=== PATIENT | male | born 1960 | race Caucasian/White ===

== ENCOUNTER 2018-07-18 10:13 | Inpatient (IN) | payer MEDICAID ==
[~2018-07-18] VITALS: Ht 175.3 cm; Wt 134.7 kg
--- NOTE | 2018-07-18 10:17 | NUR ---
Hever pepe in [facility] - 07/18/18 at 1017 by MEDFL PT AMB TO BED 2
--- NOTE | 2018-07-18 10:17 | NUR ---
PT AMBULATES TO BED 2
[2018-07-18 10:24] VITALS: BP 136/65
--- NOTE | 2018-07-18 10:28 | NUR ---
57 YO M BIB C/O ABDOMINAL DISTENSION. PT STATES " HE HAS AB DISTENSION WITH FLUID LEAKING/SEEPING FROM ABDOMEN, STARTED YESTERDAY EVERYTIME HE SITS UP." PT HAS NO SWELLING OR REDNESS AT THE AREA OF LEAKAGE. PT DENIES N/V/D; AAOX4 WITH EVEN AND STEADY GAIT; LUNGS CLEAR BL; HR EVEN AND REGULAR; PT DENIES ANY FEVER, CP, SOB, OR COUGH AT THIS TIME; PATIENT STATES PAIN OF 0/10 AT THIS TIME; VSS; PATIENT POSITIONED FOR COMFORT; HOB ELEVATED; BEDRAILS UP X1; BED DOWN. ER MD MADE AWARE OF PT STATUS. HX; RECENT DX CIRRHOSIS RX;NONE
[2018-07-18] MEDS ORDERED: FUROSEMIDE 100 MG/10 ML VIAL IVP ONE (10:40)
--- NOTE | 2018-07-18 11:01 | NUR ---
LAB AT BEDSIDE
[2018-07-18 11:23] LABS: BASOPHILS # (AUTO) 0.1 K/uL (0.00-0.22); BASOPHILS % (AUTO) 1.4 % (0.0-2.0); EOSINOPHILS # (AUTO) 0.1 K/uL (0-0.4); NEUTROPHILS # (AUTO) 4.5 K/uL (1.8-7.7)
[2018-07-18 11:29] LABS: EOSINOPHILS % (AUTO) 1.7 % (0.0-4.0); HEMATOCRIT 34.1 % (36-52); HEMOGLOBIN 10.8 g/dL (12.0-18.0); LYMPHOCYTES # (AUTO) 0.9 K/uL (2.0-11.5); LYMPHOCYTES % (AUTO) 15.1 % (20.5-51.1); MEAN CORPUSCULAR HEMOGLOBIN 29 pg (27-31); MEAN CORPUSCULAR HGB CONC 32 g/dL (33-37); MEAN CORPUSCULAR VOLUME 92.8 fL (80-94); MONOCYTES # (AUTO) 0.4 K/uL (0.8-1.0); MONOCYTES % (AUTO) 7.1 % (1.7-9.3); NEUTROPHILS % (AUTO) 74.7 % (42.2-75.2); PLATELET COUNT (AUTO) 72 K/uL (140-450); RED BLOOD CELL COUNT(AUTO) 3.68 MIL/uL (4.20-6.10); RED CELL DISTRIBUTION WIDTH 23.4 % (11.6-13.7)
[2018-07-18 11:38] LABS: PROTHROMBIN TIME 16.3 secs (10.8-13.4)
[2018-07-18 11:42] LABS: ACETONE, SERUM NEGATIVE (NEGATIVE)
[2018-07-18 12:08] LABS: AMYLASE 72 U/L (25-115); ANION GAP 13.6 (8-16); ASPARTATE AMINOTRANSFERASE 133 U/L (15-37); CARBON DIOXIDE 22.1 mmol/L (21-32); CHLORIDE 103 mmol/L (98-107); CREATININE 0.9 mg/dL (0.7-1.3); GFR ARICAN-AMERICAN 112 mL/min (>90); GLUCOSE 94 mg/dL (74-106); LIPASE 239 U/L (73-393); MAGNESIUM 2.2 mg/dL (1.8-2.4); POTASSIUM 4.7 mmol/L (3.5-5.1); SODIUM SERUM 134 mmol/L (136-145); TOTAL BILIRUBIN 16.2 mg/dL (0.0-1.0); UREA NITROGEN, BLOOD 18 mg/dL (7-18); URIC ACID 4.3 mg/dL (2.6-7.2)
--- NOTE | 2018-07-18 13:00 | NUR ---
Patient will be admitted to care of DR. PONCE. Admited to TELE FLORR. Will go to room 105-A. Belongings list completed. Report to RUI IBRAHIM.
[2018-07-18] MEDS ORDERED: ONDANSETRON 4 MG/2 ML VIAL IM/IVP PRN (13:15)
[2018-07-18] MEDS ORDERED: ZOLPIDEM 5 MG TAB PO PRN (13:15)
[2018-07-18] MEDS ORDERED: MORPHINE SULFATE 2 MG/ML SYR IVP PRN (13:15)
[2018-07-18] MEDS ORDERED: HYDROcodone/APAP 5/325 MG 1 TAB TAB PO PRN (13:15)
[2018-07-18] MEDS ORDERED: DOCUSATE SODIUM 100 MG GELCAP PO PRN (13:15)
[2018-07-18] MEDS ORDERED: ACETAMINOPHEN 325 MG TAB PO PRN (13:15)
[2018-07-18] MEDS ORDERED: LORazepam 2 MG/ML VIAL IM/IVP PRN (13:15)
[2018-07-18 13:20] VITALS: BP 142/74
--- NOTE | 2018-07-18 13:30 | NUR ---
RECEIVED PT REPORT FROM ER NURSE RICARDO. PT IS AAOX4. CC: ABD DISTENTION, ONSET IS 2 WKS AGO. DX ASCITES, ANASARCA, LIVER CIRRHOSIS. IV SITE TO LEFT AC, 22G, PATENT AND INTACT. GENERAL PITTING EDEMA 2+. JAUNDICE NOTED TO THE EYES. DENIES ANY PAIN. URINE SPECIMEN AND MRSA SWAB COLLECTED AND SENT TO LAB. PT IS AMBULATORY. BOARD UPDATED AND INTRODUCED SELF TO PT. BED IN LOWEST POSITION. CALL LIGHT WITHIN REACH.
[2018-07-18 13:31] LABS: BARBITURATE, URINE NEG. ng/ml (NEG <=200); BENZODIAZEPINE, URINE NEG. ng/mL (NEG <=200); CANNABINOID, URINE NEG. ng/mL (NEG <=50); COCAINE, URINE NEG. ng/mL (NEG <=300); OPIATE, URINE NEG. ng/mL (NEG <=2000); PHENCYCLIDINE SCREEN,URINE NEG. ng/mL (NEG <=25)
[2018-07-18] MEDS: NACL 0.9% 1,000 ML IV SCH (13:40)
--- NOTE | 2018-07-18 13:40 | NUR ---
ORDERED LUNCH FOR PT.
[2018-07-18 14:33] LABS: PHOSPHORUS 4.1 mg/dL (2.5-4.9); THYROID STIMULATING HORMONE 6.02 uIU/mL (0.34-3.74)
[2018-07-18 14:49] LABS: APPEARANCE,URINE CLEAR (CLEAR); BILIRUBIN,URINE 1+ (NEGATIVE); BLOOD, URINE NEGATIVE (NEGATIVE); COLOR,URINE YELLOW (YELLOW); LEUKOCYTE ESTERASE ,URINE NEGATIVE (NEGATIVE); NITRITE, URINE NEGATIVE (NEGATIVE); PH,URINE 5.5 (5.0-9.0); UGLUCOSE NEGATIVE (NEGATIVE)
--- NOTE | 2018-07-18 15:51 | NUR ---
RECEIVED PT REPORT FROM ER NURSE RICARDO. PT IS AAOX4. CC: ABD DISTENTION, ONSET IS 2 WKS AGO. DX ASCITES, ANASARCA, LIVER CIRRHOSIS. IV SITE TO LEFT AC, 22G, PATENT AND INTACT. GENERAL PITTING EDEMA 2+. JAUNDICE NOTED TO THE EYES. DENIES ANY PAIN. URINE SPECIMEN AND MRSA SWAB COLLECTED AND SENT TO LAB. PT IS AMBULATORY. BOARD UPDATED AND INTRODUCED SELF TO PT. BED IN LOWEST POSITION. CALL LIGHT WITHIN REACH. Addendum: 07/18/18 at 1558 by Mendoza Peraza RN PLEASE DISCARD, WRONG TIME ENTERED.
[2018-07-18 16:00] VITALS: BP 143/83
--- NOTE | 2018-07-18 17:00 | NUR ---
DR SAHNI HAS TALKED TO THE PT. CONSENT FOR PARACENTESIS SIGNED. PT HAS NO QUESTIONS AT THIS TIME.
[2018-07-18] MEDS ORDERED: LISINOPRIL 10 MG TAB ONE (17:45)
[2018-07-18] MEDS ORDERED: LISINOPRIL 5 MG TAB PO SCH (18:00)
--- NOTE | 2018-07-18 19:20 | NUR ---
ENDORSED PT TO IMAGING AIDE RN. PT IN STABLE CONDITION.
--- NOTE | 2018-07-18 19:25 | NUR ---
RECEIVED REPORT AT BEDSIDE.PT IS AWAKE,ALERT & ORIENTED.RESP.IS UNLABORED IN RA.IVF INFUSING WELL.CALL LIGHT IN REACH.WILL CONTINUE MONITORING.
[2018-07-18] MEDS: SPIRONOLACTONE 25 MG TAB PO SCH (20:49)
[2018-07-19] VITALS: BP 140/81
--- NOTE | 2018-07-19 | NUR ---
SLEEPING W/O SIGN OF ANY DISTRESS.CALL LIGHT IN REACH.VS STABLE.
[2018-07-19] MEDS: NACL 0.9% 1,000 ML IV SCH (01:45)
--- NOTE | 2018-07-19 07:10 | NUR ---
RECEIVED PT REPORT FROM INTERNET SALES REPRESENTATIVE NURSE. PT IS AAOX4. IV SITE TO LEFT AC, 22G, PATENT AND INTACT. BLE PITTING EDEMA 2+. ABD IS LARGE AND ASCITIC. JAUNDICE NOTED TO THE EYES. DENIES ANY PAIN. PLAN OF CARE DISCUSSED WITH PT. PT VERBALIZED UNDERSTANDING. PT IS AMBULATORY. BOARD UPDATED AND INTRODUCED SELF TO PT. BED IN LOWEST POSITION. CALL LIGHT WITHIN REACH.
--- NOTE | 2018-07-19 07:11 | NUR ---
REPORT GIVEN TO PHILLIP RN.PT'S CONDITION IS STABLE.
[2018-07-19 07:51] LABS: BASOPHILS # (AUTO) 0.1 K/uL (0.00-0.22); BASOPHILS % (AUTO) 1.1 % (0.0-2.0); EOSINOPHILS # (AUTO) 0.1 K/uL (0-0.4); EOSINOPHILS % (AUTO) 2.8 % (0.0-4.0); HEMATOCRIT 27.6 % (36-52); HEMOGLOBIN 8.9 g/dL (12.0-18.0); LYMPHOCYTES # (AUTO) 0.8 K/uL (2.0-11.5); LYMPHOCYTES % (AUTO) 16.1 % (20.5-51.1); MEAN CORPUSCULAR HEMOGLOBIN 30 pg (27-31); MEAN CORPUSCULAR HGB CONC 32 g/dL (33-37); MEAN CORPUSCULAR VOLUME 93.3 fL (80-94); MONOCYTES # (AUTO) 0.5 K/uL (0.8-1.0); MONOCYTES % (AUTO) 9.7 % (1.7-9.3); NEUTROPHILS # (AUTO) 3.4 K/uL (1.8-7.7); NEUTROPHILS % (AUTO) 70.3 % (42.2-75.2); PLATELET COUNT (AUTO) 58 K/uL (140-450); RED BLOOD CELL COUNT(AUTO) 2.96 MIL/uL (4.20-6.10); RED CELL DISTRIBUTION WIDTH 23.3 % (11.6-13.7); WHITE BLOOD COUNT (AUTO) 4.8 K/uL (4.8-10.8)
[2018-07-19 07:57] LABS: ANION GAP 11.4 (8-16); CARBON DIOXIDE 21.7 mmol/L (21-32); CREATININE 0.8 mg/dL (0.7-1.3); POTASSIUM 4.1 mmol/L (3.5-5.1)
[2018-07-19 08:00] VITALS: BP 138/70
[2018-07-19 08:21] LABS: PHOSPHORUS 4.2 mg/dL (2.5-4.9)
[2018-07-19 08:22] LABS: CHOL/HDL RATIO 5.5 (1-4.5)
[2018-07-19] MEDS: SPIRONOLACTONE 25 MG TAB PO SCH ×2 (08:55→20:55)
[2018-07-19] MEDS ORDERED: LISINOPRIL 5 MG TAB PO SCH (09:00)
[2018-07-19] MEDS ORDERED: FUROSEMIDE 40 MG TAB PO SCH (09:00)
[2018-07-19] MEDS ORDERED: chlordiazePOXIDE 25 MG CAP PO SCH (09:00)
--- NOTE | 2018-07-19 09:05 | NUR ---
DR JONES HAS SEEN THE PT. WILL PERFORM EGD TOMORROW. DR SAHNI WILL PERFORM PARACENTESIS TODAY.
[2018-07-19] MEDS: PANTOPRAZOLE 40 MG INJ VIAL IVP SCH (09:17)
[2018-07-19] MEDS: LACTULOSE 20 GM/30 ML UDC PO SCH ×2 (09:17→20:54)
[2018-07-19] MEDS: FUROSEMIDE 20 MG/2 ML VIAL IVP SCH ×2 (09:18→20:56)
--- NOTE | 2018-07-19 09:20 | NUR ---
WEIGHT THE PT, 302.6 LB. URINE HAT AND URINAL PROVIDED FOR PT. PT UNDERSTAND THAT WE ARE MEASURING OUTPUT.
[2018-07-19] MEDS ORDERED: PHYTONADIONE 10 MG/ML AMP SUBQ SCH (09:30)
--- NOTE | 2018-07-19 12:00 | NUR ---
BP 130/69 HR 80
[2018-07-19] MEDS: PROPRANOLOL 20 MG TAB PO SCH ×3 (12:15→20:54)
[2018-07-19 12:26] LABS: T4 (THYROXINE) 5.5 ug/dL (4.5-12.0)
[2018-07-19 16:04] VITALS: BP 126/71
--- NOTE | 2018-07-19 16:40 | NUR ---
PARACENTESIS PROCEDURE WAS DONE AT BEDSIDE. PT TOLERATED WELL.
[2018-07-19] MEDS ORDERED: LIDOCAINE 2% 100 MG/5 ML UJET TP ONE (16:50)
[2018-07-19] MEDS ORDERED: LIDOCAINE MPF 1% - 5 mL VIAL 5 ML ONE (16:57)
[2018-07-19] MEDS ORDERED: LIDOCAINE MPF 1% 5mL VIAL INJ ONE (17:00)
[2018-07-19] MEDS ORDERED: MENTHOL/METHYL 10%-15% 114 GM TUBE TP PRN ×2 (18:50→20:30)
--- NOTE | 2018-07-19 19:30 | NUR ---
TOTAL OF 5 L HAS BEEN DRAINED FROM PARACENTESIS, SENT THE BOTTLES TO LAB.
--- NOTE | 2018-07-19 19:30 | NUR ---
ENDORSE PT TO CONSUMER SAFETY OFFICER NURSE. PT IN STABLE CONDITION.
--- NOTE | 2018-07-19 19:31 | NUR ---
RECEIVED REPORT FROM ALEXANDRIA THOMAS NURSE AT BEDSIDE FOR CONTINUITY OF CARE. PT AAOX4. PT IS CURRENTLY WITH MD AND MD REMOVING TUBE FROM PARACENTESIS. PT IV NOTED LAC 22G NS TKO. NO SOB NO S/S OF DISTRESS ON RA. PT AMBULATORY. BED LOWERED CALL LIGHT WITHIN REACH WILL CONTINUE TO MONITOR.
[2018-07-19 20:17] LABS: PROTHROMBIN TIME 17.2 secs (10.8-13.4)
--- NOTE | 2018-07-19 21:00 | NUR ---
PT REQUESTED SANDRA FOR PAIN IN HANDS TALK TO MD. MD WILL PUT IN THE ORDER.
[2018-07-20] MEDS: NACL 0.9% 1,000 ML IV SCH (00:21)
--- NOTE | 2018-07-20 01:00 | NUR ---
PT WOKE UP AND STATED THEY WERE LEAKING. UPON ENTERING THE ROOM PT IS SITTING AT BEDSIDE. I DO NOTICE 2 HOLES 0.05MM RIGHT AND LEFT LOWER QUANDRANT. PT ALSO LEAVING LOWER ABDOMEN FROM PORES. CHANGED SHEETS AND GUAZE DRESSING WILL CONTINUE TO MONITOR.
[2018-07-20 01:28] VITALS: BP 120/51
[2018-07-20 02:57] LABS: APPEARANCE,SPUN,BODY FLUID HAZY (CLEAR); APPEARANCE,UNSPUN,BODY FLUID HAZY (CLEAR); COLOR,BODY FLUID YELLOW (LT YELLOW); POLYNUCLEAR, BODY FLUID 0 %; RBC, BODY FLUID 1222 /cu. mm.; SPECIMENTYPE,BODY FLUID PERITONEAL; WBC, BODY FLUID 66 /cu. mm.
[2018-07-20 03:07] LABS: TOTAL VOLUME,BODY FLUID 5000 mL
--- NOTE | 2018-07-20 03:13 | NUR ---
PUT SANDRA AT BEDSIDE.
[2018-07-20] MEDS: PROPRANOLOL 20 MG TAB PO SCH ×4 (06:35→21:00)
--- NOTE | 2018-07-20 07:37 | NUR ---
ENDORSED REPORT TO DAYSHIFT NURSE AT BEDSIDE FOR CONTINUITY OF CARE.
--- NOTE | 2018-07-20 07:38 | NUR ---
RECEIVED REPORT FROM CLIENT LEADER RN. PATIENT IS AAOX4, HAS NO SIGNS AND SYMPTOMS OF ACUTE DISTRESS NOTED AT THIS TIME. HAS IV TO THE LEFT AC 20G, INFUSING NS AT 10 ML/HR. SITE IS CLEAN, DRY, PATENT AND INTACT. DISCUSSED PLAN OF CARE WITH PATIENT AND HE VERBALIZED UNDERSTANDING. BED IN LOWEST POSITION, SIDE RAILS UP X2, CALL LIGHT WITHIN REACH. WILL CONTINUE TO MONITOR.
[2018-07-20 07:47] LABS: EOSINOPHILS # (AUTO) 0.1 K/uL (0-0.4); EOSINOPHILS % (AUTO) 2.8 % (0.0-4.0); HEMATOCRIT 27.8 % (36-52); LYMPHOCYTES # (AUTO) 0.8 K/uL (2.0-11.5); MEAN CORPUSCULAR HEMOGLOBIN 30 pg (27-31); MEAN CORPUSCULAR HGB CONC 32 g/dL (33-37); MEAN CORPUSCULAR VOLUME 92.7 fL (80-94); MONOCYTES # (AUTO) 0.5 K/uL (0.8-1.0); MONOCYTES % (AUTO) 8.9 % (1.7-9.3); NEUTROPHILS # (AUTO) 3.7 K/uL (1.8-7.7); NEUTROPHILS % (AUTO) 71.3 % (42.2-75.2); PLATELET COUNT (AUTO) 61 K/uL (140-450); RED CELL DISTRIBUTION WIDTH 22.8 % (11.6-13.7); WHITE BLOOD COUNT (AUTO) 5.1 K/uL (4.8-10.8)
[2018-07-20 08:00] VITALS: BP 109/47
[2018-07-20 08:20] LABS: ANION GAP 11.5 (8-16); CARBON DIOXIDE 21.6 mmol/L (21-32); POTASSIUM 4.1 mmol/L (3.5-5.1)
[2018-07-20 08:36] LABS: MAGNESIUM 1.9 mg/dL (1.8-2.4); PHOSPHORUS 4.3 mg/dL (2.5-4.9)
[2018-07-20] MEDS: SPIRONOLACTONE 25 MG TAB PO SCH (09:00)
[2018-07-20] MEDS: FUROSEMIDE 20 MG/2 ML VIAL IVP SCH ×2 (09:00→21:33)
[2018-07-20] MEDS: PANTOPRAZOLE 40 MG INJ VIAL IVP SCH ×2 (09:00→21:30)
[2018-07-20] MEDS: LACTULOSE 20 GM/30 ML UDC PO SCH ×2 (09:00→21:33)
--- NOTE | 2018-07-20 09:12 | NUR ---
PATIENT HAS BEEN SCREENED AND CATEGORIZED HIGH NUTRITION RISK. PATIENT WILL BE SEEN WITHIN 1-2 DAYS OF ADMISSION. 07/20/[address]
[2018-07-20] MEDS ORDERED: MIDAZOLAM 2 MG/2 ML VIAL ONE (14:02)
[2018-07-20] MEDS ORDERED: diphenhydrAMINE 50 MG/ML VIAL ONE (14:02)
[2018-07-20] MEDS ORDERED: fentaNYL 0.05 MG/ML VIAL ONE ×2 (14:02)
--- NOTE | 2018-07-20 14:05 | NUR ---
PATIENT TAKEN TO GET GI PROCEDURE. STABLE AT THIS TIME.
--- NOTE | 2018-07-20 15:25 | NUR ---
PATIENT BACK FROM EGD. STABLE AT THIS TIME.
--- NOTE | 2018-07-20 15:49 | NUR ---
07/20/18 RD INITIAL ASSESSMENT COMPLETED PLEASE REFER TO NUTRITION ASSESSMENT UNDER CARE ACTIVITY FOR ESTIMATED NUTRITIONAL NEEDS. 1. IMPLEMENT CARDIAC DIET TOLERATED. 2. EDUCATE THE PT ON HEART HEALTHY FATS. 3. RECOMMEND THIAMIN VITAMIN SUPPLEMENTATION. 4. RD TO FOLLOW-UP 3-5 DAYS, MODERATE RISK THERESE MATOS RD
[2018-07-20 16:00] VITALS: BP 115/48
[2018-07-20] MEDS: SPIRONOLACTONE 50 MG TAB PO SCH (17:42)
--- NOTE | 2018-07-20 19:15 | NUR ---
ENDORSED PATIENT TO ERGONOMIC SPECIALIST RN FOR CONTINUITY OF CARE. PATIENT IN STABLE CONDITION.
--- NOTE | 2018-07-20 19:22 | NUR ---
RECEIVED PT FROM JUMA FABIAN PT NGUYỄN AAOX4 AMBULATOY WITH EDEMA ON BLE ASCITES IV ON LEFT AC INFUSING WELL TKO INITIAL ASSESSMENT DONE
[2018-07-20 20:00] VITALS: BP 90/45
--- NOTE | 2018-07-20 22:00 | NUR ---
PT AMBULATES TO THE RESTROOM VOIDING WELL NOT DITRESS NOTED
[2018-07-21] VITALS: BP 105/42
[2018-07-21] MEDS: NACL 0.9% 1,000 ML IV SCH (00:21)
--- NOTE | 2018-07-21 04:25 | NUR ---
PT REPOSITIONED HIMSELF NOT DITRESS NOTED
--- NOTE | 2018-07-21 05:40 | NUR ---
PT VOIDING WELL NO T DISTRESS NOTED
--- NOTE | 2018-07-21 06:16 | NUR ---
PT RESTING ON BED SLEEPING DENIES ANY PAIN OR DISCOMFORT
[2018-07-21 07:09] LABS: BASOPHILS % (AUTO) 0.9 % (0.0-2.0); EOSINOPHILS # (AUTO) 0.1 K/uL (0-0.4); EOSINOPHILS % (AUTO) 2.7 % (0.0-4.0); HEMATOCRIT 30.5 % (36-52); HEMOGLOBIN 9.7 g/dL (12.0-18.0); LYMPHOCYTES # (AUTO) 0.9 K/uL (2.0-11.5); LYMPHOCYTES % (AUTO) 16.3 % (20.5-51.1); MEAN CORPUSCULAR HEMOGLOBIN 30 pg (27-31); MEAN CORPUSCULAR HGB CONC 32 g/dL (33-37); MEAN CORPUSCULAR VOLUME 93.1 fL (80-94); MONOCYTES # (AUTO) 0.4 K/uL (0.8-1.0); MONOCYTES % (AUTO) 8.2 % (1.7-9.3); NEUTROPHILS # (AUTO) 3.9 K/uL (1.8-7.7); NEUTROPHILS % (AUTO) 71.9 % (42.2-75.2); PLATELET COUNT (AUTO) 65 K/uL (140-450); RED BLOOD CELL COUNT(AUTO) 3.27 MIL/uL (4.20-6.10); RED CELL DISTRIBUTION WIDTH 22.9 % (11.6-13.7); WHITE BLOOD COUNT (AUTO) 5.4 K/uL (4.8-10.8)
[2018-07-21 07:24] LABS: ANION GAP 9.2 (8-16); CARBON DIOXIDE 22.8 mmol/L (21-32); CREATININE 0.9 mg/dL (0.7-1.3)
--- NOTE | 2018-07-21 07:31 | NUR ---
RECEIVED REPORT FROM BEAD WIRE INSULATOR RN. PATIENT IS AAOX4, HAS NO SIGNS AND SYMPTOMS OF ACUTE DISTRESS NOTED AT THIS TIME. HAS IV TO THE LEFT AC 20G, INFUSING NS AT 10 ML/HR. SITE IS CLEAN, DRY, PATENT AND INTACT. DISCUSSED PLAN OF CARE WITH PATIENT AND HE VERBALIZED UNDERSTANDING. BED IN LOWEST POSITION, SIDE RAILS UP X2, CALL LIGHT WITHIN REACH. WILL CONTINUE TO MONITOR.
[2018-07-21 07:32] LABS: PROTHROMBIN TIME 15.4 secs (10.8-13.4)
[2018-07-21 08:00] VITALS: BP 124/60
[2018-07-21 08:47] LABS: MAGNESIUM 1.9 mg/dL (1.8-2.4); PHOSPHORUS 4.7 mg/dL (2.5-4.9)
[2018-07-21] MEDS: PROPRANOLOL 20 MG TAB PO SCH (09:00)
[2018-07-21] MEDS: LACTULOSE 20 GM/30 ML UDC PO SCH (09:40)
[2018-07-21] MEDS: SPIRONOLACTONE 50 MG TAB PO SCH (09:41)
[2018-07-21] MEDS: FUROSEMIDE 20 MG/2 ML VIAL IVP SCH (09:43)
[2018-07-21] MEDS: PANTOPRAZOLE 40 MG INJ VIAL IVP SCH (09:43)
[2018-07-21] MEDS ORDERED: PANT40EC PO ×2 (10:43→11:09)
[2018-07-21] MEDS ORDERED: FURO-570 PO (10:43)
[2018-07-21] MEDS ORDERED: PROP20TA29 PO (10:43)
[2018-07-21] MEDS ORDERED: SPIR100T5 PO (10:43)
[2018-07-21] MEDS ORDERED: CLAR500T PO (11:09)
[2018-07-21] MEDS ORDERED: AMOX500C25 PO (11:09)
--- NOTE | 2018-07-21 12:30 | NUR ---
DISCHARGE ORDER IS IN PLACE. GAVE PATIENT DISCHARGE INSTRUCTIONS. INFORMED HIM OF HIS PRESCRIPTIONS. EDUCATED ON S/SX OF WORSENING SYMPTOMS TO SEEK EMERGENCY MEDICAL ATTENTION. PATIENT VERBALIZED UNDERSTANDING. REMOVED IV FROM SITE. CATHETER INTACT. REMOVED ID BANDS. ALL BELONGINGS ARE WITH THE PATIENT. IN STABLE CONDITION AT THIS TIME. WILL WALK OUT WITH PATIENT.
[2018-07-22 02:52] LABS: GLUCOSE,BODY FLUID 118 mg/dL
== END 2018-07-21 12:30 | disposition home or self-care (01) | DRG 280 ==
LOC: MED 10:13 → MTU 12:10
PROVIDERS: ADMIT Family Medicine; ATTEND Family Medicine
PROC: 0W9G3ZZ Drainage of Peritoneal Cavity, Percutaneous Approach (ICD-10-PCS; principal; 2018-07-18)
PROC: 06L38CZ Occlusion of Esophageal Vein with Extraluminal Device, Via Natural or Artificial Opening Endoscopic (ICD-10-PCS; 2018-07-18)
PROC: 0DB68ZX Excision of Stomach, Via Natural or Artificial Opening Endoscopic, Diagnostic (ICD-10-PCS; 2018-07-18)
DX: K70.31 Alcoholic cirrhosis of liver with ascites (principal); I50.43 Acute on chronic combined systolic (congestive) and diastolic (congestive) heart failure; E43 Unspecified severe protein-calorie malnutrition; J90 Pleural effusion, not elsewhere classified; D69.6 Thrombocytopenia, unspecified; K76.6 Portal hypertension; E87.1 Hypo-osmolality and hyponatremia; I85.10 Secondary esophageal varices without bleeding; E83.51 Hypocalcemia; R82.2 Biliuria; R16.1 Splenomegaly, not elsewhere classified; D64.9 Anemia, unspecified; F10.10 Alcohol abuse, uncomplicated; E02 Subclinical iodine-deficiency hypothyroidism; K80.20 Calculus of gallbladder without cholecystitis without obstruction; D63.8 Anemia in other chronic diseases classified elsewhere; K29.70 Gastritis, unspecified, without bleeding; I11.0 Hypertensive heart disease with heart failure; F15.99 Other stimulant use, unspecified with unspecified stimulant-induced disorder; Z71.41 Alcohol abuse counseling and surveillance of alcoholic
CPT/HCPCS: 36415; 71045; 76700; 76705; 80048; 80053; 80305; 81003; 82009; 82140; 82150; 82247; 82945; 83036; 83605; 83615; 83690; 83735; 83880; 84100; 84134; 84157; 84436; 84443; 84484; 84550; 85025; 85610; 86677; 87070; 87075; 87081; 87205; 89051; 93005; 96374; 99285; C9113; G0482; J1200; J1940; J2001; J2250; J3010; J3430; J7030; Q0092

== ENCOUNTER 2018-09-12 08:01 | Emergency (ER) | payer MEDICAID ==
[~2018-09-12] VITALS: Ht 175.3 cm; Wt 135.7 kg
[~2018-09-12 08:01] MED LIST: AMOX500C25 PO; CLAR500T PO; FURO-570 PO; PANT40EC PO; PROP20TA29 PO; SPIR100T5 PO
--- NOTE | 2018-09-12 08:07 | NUR ---
PT AMBULATES TO BED 6
[2018-09-12 08:10] VITALS: BP 161/84
--- NOTE | 2018-09-12 08:11 | NUR ---
Patient being evaluated by physician at bedside.
--- NOTE | 2018-09-12 08:19 | NUR ---
PT WITH C/O WAKING UP THIS MORNING WITH A SWOLLEN PENIS; DENIES PAIN/DISCHARGE OR PAINFUL URINATION. PATIENT STATES PAIN OF 0/10 AT THIS TIME; VSS; PATIENT POSITIONED FOR COMFORT; HOB ELEVATED; BEDRAILS UP X1; BED DOWN. ER MD MADE AWARE OF PT STATUS.
[2018-09-12] MEDS ORDERED: FUROSEMIDE 20 MG TAB PO ONE (08:25)
[2018-09-12] MEDS ORDERED: FUROSEMIDE 40 MG TAB ONE (08:46)
[2018-09-12 09:28] VITALS: BP 161/84
== END 2018-09-12 09:24 | disposition home or self-care (01) ==
LOC: MED 08:01
DX: K70.31 Alcoholic cirrhosis of liver with ascites (principal); Z79.2 Long term (current) use of antibiotics; Z79.899 Other long term (current) drug therapy
CPT/HCPCS: 99283

== ENCOUNTER 2018-10-04 09:15 | Inpatient (IN) | payer MEDICAID, OTHER ==
[~2018-10-04] VITALS: Ht 175.3 cm; Wt 143.3 kg
[~2018-10-04 09:15] MED LIST changes: +SPIR100T46 PO; -SPIR100T5 PO
[2018-10-04 09:25] VITALS: BP 132/65
--- NOTE | 2018-10-04 09:25 | NUR ---
patient to rm 12 via w/c
[2018-10-04] MEDS ORDERED: FERR325E14 PO (09:27)
--- NOTE | 2018-10-04 09:45 | NUR ---
57YO M BIB FAMILY W/C/O SCRODAL EDEMA X2WKS. PT STATES ABD SWELLING STARTED X3WKS AGO. PT WAS SEEN X2 WKS AGO AND X3 DAYS AGO BY PCP. AAOX4 PERSON, PLACE TIME AND EVENT, SCLARAL YELLOWING, PERRLA. LABBORED SHALLOW RR WITH EXCERTION. LS CLEAR THROUGHOUT, SKIN MOIST AND JAUNDICE. BS ACTIVE X4, ABD ASCITIC WITH 76CM GIRTH, NON TENDER. SCROTAL EDEMA, AND BLE PITTING EDEMA. ER MD MADE AWARE . WILL CONTINUE TO MONITOR. PT POSITIONED FOR COMFORT AND MONITORS APPLIED
[2018-10-04] MEDS ORDERED: LIDOCAINE VISCOUS 2% 20 ML UDC PO ONE (10:05)
[2018-10-04] MEDS ORDERED: SPIRONOLACTONE 25 MG TAB PO ONE (10:05)
[2018-10-04] MEDS ORDERED: FUROSEMIDE 100 MG/10 ML VIAL IVP ONE (10:05)
--- NOTE | 2018-10-04 10:05 | NUR ---
DR TOVAR AT BEDSIDE FOR PT EVALUATION
[2018-10-04 10:17] LABS: BASOPHILS % (AUTO) 0.8 % (0.0-2.0); EOSINOPHILS # (AUTO) 0.3 K/uL (0-0.4); EOSINOPHILS % (AUTO) 4.5 % (0.0-4.0); HEMATOCRIT 24.4 % (36-52); HEMOGLOBIN 7.9 g/dL (12.0-18.0); LYMPHOCYTES # (AUTO) 0.9 K/uL (2.0-11.5); LYMPHOCYTES % (AUTO) 13.5 % (20.5-51.1); MEAN CORPUSCULAR HEMOGLOBIN 31 pg (27-31); MEAN CORPUSCULAR HGB CONC 32 g/dL (33-37); MEAN CORPUSCULAR VOLUME 94.8 fL (80-94); MONOCYTES # (AUTO) 0.4 K/uL (0.8-1.0); MONOCYTES % (AUTO) 5.7 % (1.7-9.3); NEUTROPHILS # (AUTO) 4.8 K/uL (1.8-7.7); NEUTROPHILS % (AUTO) 75.5 % (42.2-75.2); PLATELET COUNT (AUTO) 68 K/uL (140-450); RED BLOOD CELL COUNT(AUTO) 2.57 MIL/uL (4.20-6.10); RED CELL DISTRIBUTION WIDTH 19.1 % (11.6-13.7); WHITE BLOOD COUNT (AUTO) 6.4 K/uL (4.8-10.8)
--- NOTE | 2018-10-04 10:25 | NUR ---
ATTEMPTED FRENCH CATH, FAILED ATTEMPT
[2018-10-04 10:39] LABS: ANION GAP 13.4 (8-16); CARBON DIOXIDE 21.4 mmol/L (21-32); CREATININE 1.3 mg/dL (0.7-1.3); POTASSIUM 3.8 mmol/L (3.5-5.1)
[2018-10-04 10:45] LABS: ALBUMIN 1.7 g/dL (3.4-5.0)
--- NOTE | 2018-10-04 10:45 | NUR ---
RADIOLOGY AT BEDSIDE FOR XRAY
--- NOTE | 2018-10-04 11:00 | NUR ---
PATIENT TAKEN TO CT VIA GURNEY AT THIS TIME.
--- NOTE | 2018-10-04 11:25 | NUR ---
PT BACK FROM CT. MONITORS Applied
[2018-10-04 12:16] LABS: BARBITURATE, URINE NEG. ng/ml (NEG <=200); BENZODIAZEPINE, URINE NEG. ng/mL (NEG <=200); CANNABINOID, URINE NEG. ng/mL (NEG <=50); COCAINE, URINE NEG. ng/mL (NEG <=300); OPIATE, URINE NEG. ng/mL (NEG <=2000); PHENCYCLIDINE SCREEN,URINE NEG. ng/mL (NEG <=25)
[2018-10-04 12:32] LABS: APPEARANCE,URINE CLEAR (CLEAR); BILIRUBIN,URINE NEGATIVE (NEGATIVE); BLOOD, URINE 1+ (NEGATIVE); COLOR,URINE YELLOW (YELLOW); LEUKOCYTE ESTERASE ,URINE NEGATIVE (NEGATIVE); NITRITE, URINE NEGATIVE (NEGATIVE); UGLUCOSE NEGATIVE (NEGATIVE)
[2018-10-04 12:33] LABS: RBC,URINE 3-10 (FEW) /HPF (0-5); WBC,URINE NONE SEEN /HPF (0-5)
--- NOTE | 2018-10-04 12:47 | NUR ---
PT RESTING IN BED IN NO APPEARENT DISTRESS WITH FAMILY AT BEDSIDE
[2018-10-04] MEDS ORDERED: LACTULOSE 20 GM/30 ML UDC PO ONE (13:10)
[2018-10-04] MEDS ORDERED: ACETAMINOPHEN 325 MG TAB PO PRN (13:30)
[2018-10-04] MEDS ORDERED: ONDANSETRON 4 MG/2 ML VIAL IVP PRN (13:30)
[2018-10-04] MEDS ORDERED: MORPHINE SULFATE 4 MG/ML SYR IVP PRN (13:30)
--- NOTE | 2018-10-04 14:00 | NUR ---
Patient will be admitted to care of DR GRUBBS . Admited to TELE. Will go to room 120B. Belongings list completed. Report to SUSANA FABIAN .
--- NOTE | 2018-10-04 14:14 | NUR ---
PATIENT HAS BEEN SCREENED AND CATEGORIZED HIGH NUTRITION RISK. PATIENT WILL BE SEEN WITHIN 1-2 DAYS OF ADMISSION. 10/05/18 10/06/18 SANDY IGLESIAS MBA, RD
--- NOTE | 2018-10-04 14:15 | NUR ---
RECEIVED REPORT FROM ER NURSE AT BEDSIDE. PT AOX4, HAS LFT AC 20 G, IV ACCESS, SALINE LOCK. PT HAS DISTENDED ABDOMEN, SWOLLEN SCORTUM. VS NORMAL RECORDED. BP 123/64, HR 72, O12 110%, T 97.5, RR 18. PT BED REST, NEEDS ASSISTANCE WI9TH USE OF URINAL. NO SIGN OF DISTRESS NOTED. HAS SKIN TEAR ON RT LOWER LEG BECAUSE OF [id number] AND ON BACK OF HIP. PT ABLE TO COMMUNICATE WELL. NO SIGN OF DISTRESS NOTED, EXCEPT PT COMPLAINS OF UNCOMFORTABLE IN HIS SCROTAL REGION. WILL CONTINUE TO MONITOR PT.
[2018-10-04 15:00] LABS: PROTHROMBIN TIME 17.2 secs (10.8-13.4)
[2018-10-04 15:07] LABS: ACETONE, SERUM NEGATIVE (NEGATIVE)
[2018-10-04] MEDS ORDERED: ALBUMIN HUMAN 25% 50 ML IV SCH (15:30)
[2018-10-04 16:00] VITALS: BP 125/65
--- NOTE | 2018-10-04 16:00 | NUR ---
CHECKED ON PT. NORMAL VS. APPLIED HYPOGUARD IN PT SCROTAL REGION. TOLERATED WELL. WILL INFUSE ALBUMIN ORDERED. HELPED PT WITH URINAL . PLACED CALL LIGHT WITHIN PT REACH. NO SIGN OF DISTRESS NOTED. WILL CONTINUE TO MONITOR PT.
[2018-10-04] MEDS: PROPRANOLOL 20 MG TAB PO SCH ×2 (17:00→20:15)
--- NOTE | 2018-10-04 17:00 | NUR ---
INFUSED INSULIN TO PT. TOLERATED WELL.WILL CONTINUE TO MONITOR PT.
--- NOTE | 2018-10-04 19:00 | NUR ---
MISSED TO ADMINISTER INDERAL TO PT. WILL ENDORSE TO PM NURSE TO ADMINISTER TO PT.
--- NOTE | 2018-10-04 19:15 | NUR ---
ENDORSED REPORT TO PM NURSE AT BEDSIDE. MO SIGN OF DISTRESS. PT IN STABLE CONDITION.
--- NOTE | 2018-10-04 19:16 | NUR ---
RECEIVED PT AWAKE ON BED, VITAL SIGNS STABLE, DENIES PAIN, NO SOB NOTED, CLEAR LUNG SOUNDS, ABDOMEN DISTENDED DUE TO ASCITES, SCROTAL AND PENILE EDEMA NOTED, PLAN OF CARE DISCUSSED, SAFETY MEASURES IN PLACE, CALL LIGHT WITHIN REACH.
[2018-10-04 20:00] VITALS: BP 130/57
[2018-10-04] MEDS: PANTOPRAZOLE 40 MG TABEC PO SCH (20:15)
[2018-10-04] MEDS: FERROUS SULFATE 325 MG TABEC PO SCH (20:15)
--- NOTE | 2018-10-04 20:20 | NUR ---
DUE MEDS GIVEN WITH EDUCATION PROVIDED, ASSISTED TO USE URINAL, VOIDED FREELY WITH CLEAR STRAW COLORED URINE, ALL NEEDS ATTENDED.
[2018-10-05] VITALS: BP 101/50
--- NOTE | 2018-10-05 | NUR ---
PT SLEEPING, EASILY AROUSABLE, VITAL SIGNS STABLE, DENIES PAIN, NO SOB NOTED, CONTINUE TO MONITOR CLOSELY.
[2018-10-05] MEDS ORDERED: HYDRAGUARD CREAM TP ONE (01:00)
[2018-10-05 04:00] VITALS: BP 130/49
--- NOTE | 2018-10-05 04:00 | NUR ---
PT ASSISTED TO VOID PER URINAL, VITAL SIGNS STABLE, DENIES PAIN, NO SOB NOTED, MONITOR CLOSELY.
--- NOTE | 2018-10-05 07:20 | NUR ---
PT AWAKE, NO DISTRESS NOTED, REPORT GIVEN TO RUI SLADE FOR CONTINUITY OF CARE.
--- NOTE | 2018-10-05 07:22 | NUR ---
RECEIVED BEDSIDE REPORT FROM LOADING UNIT OPERATOR POWDER CHARGING NURSE AT BEDSIDE. PT AOX4. DENIES PAIN AND DISCOMFORT AT THIS TIME. LUNGS CTA. HEART RHYTHM REGULAR. SCOTAL AND PENILE EDEMA NOTED. ASCITES. ABDOMEN LARGE AND DISTENDED. NO TENDERNESS TO LIGHT PALPATION. BILATERAL LE 3+ PITTING EDEMA. PT WAS AMBULATORY BEFORE ADMISSION BUT HAS NOT WALKED SINCE HOSPITALIZATION PER LOADING UNIT OPERATOR POWDER CHARGING RN. NEEDS ASSISTANCE WITH URINAL. IV SITE PATENT, SL. ALL SAFETY PRECAUTIONS IN PLACE, WILL CONTINUE TO MONITOR.
[2018-10-05 07:55] LABS: BASOPHILS % (AUTO) 0.8 % (0.0-2.0); EOSINOPHILS # (AUTO) 0.4 K/uL (0-0.4); EOSINOPHILS % (AUTO) 6.8 % (0.0-4.0); HEMATOCRIT 23.4 % (36-52); HEMOGLOBIN 7.6 g/dL (12.0-18.0); LYMPHOCYTES % (AUTO) 18.7 % (20.5-51.1); MEAN CORPUSCULAR HEMOGLOBIN 30 pg (27-31); MEAN CORPUSCULAR HGB CONC 32 g/dL (33-37); MONOCYTES # (AUTO) 0.5 K/uL (0.8-1.0); MONOCYTES % (AUTO) 8.7 % (1.7-9.3); NEUTROPHILS # (AUTO) 3.5 K/uL (1.8-7.7); PLATELET COUNT (AUTO) 59 K/uL (140-450); RED BLOOD CELL COUNT(AUTO) 2.49 MIL/uL (4.20-6.10); RED CELL DISTRIBUTION WIDTH 19.3 % (11.6-13.7); WHITE BLOOD COUNT (AUTO) 5.4 K/uL (4.8-10.8)
[2018-10-05 08:00] VITALS: BP 119/56
[2018-10-05 08:31] LABS: ALBUMIN 1.8 g/dL (3.4-5.0); CARBON DIOXIDE 22.7 mmol/L (21-32); CREATININE 1.1 mg/dL (0.7-1.3); POTASSIUM 3.7 mmol/L (3.5-5.1); TOTAL BILIRUBIN 3.2 mg/dL (0.0-1.0)
--- NOTE | 2018-10-05 09:02 | NUR ---
HELPED PT TO BATHROOM WITH MINIMAL ASSIST. PT STATED HE HAS BM. OFFERED BEDPAN AND BEDSIDE COMMODE BUT PT REFUSED, PREFERS TO USE BATHROOM. GAIT EVEN AND STEADY WITH MINIMAL ASSIST. WILL CONTINUE TO MONITOR.
[2018-10-05] MEDS: PANTOPRAZOLE 40 MG TABEC PO SCH ×2 (09:13→20:05)
[2018-10-05] MEDS: SPIRONOLACTONE 50 MG TAB PO SCH (09:13)
[2018-10-05] MEDS: FERROUS SULFATE 325 MG TABEC PO SCH ×2 (09:13→20:05)
--- NOTE | 2018-10-05 09:13 | NUR ---
PER PT, HE HAD NORMAL BM, NO DIARRHEA, NO STRAINING.
[2018-10-05] MEDS: PROPRANOLOL 20 MG TAB PO SCH ×3 (09:14→16:11)
[2018-10-05] MEDS: FUROSEMIDE 40 MG TAB PO SCH (09:14)
[2018-10-05 12:00] VITALS: BP 121/50
--- NOTE | 2018-10-05 12:30 | NUR ---
ADMINISTERED PROPANOLOL SCHEDULED. APPLIED HYDRAGUARD TO SCROTAL AREA PER PT REQUEST OF DRYNESS. Addendum: 10/05/18 at 1231 by Ashlee Lozano Meng, RN DUE TO DRYNESS.
--- NOTE | 2018-10-05 14:10 | NUR ---
PT SLEEPING IN BED, WATCHING TV. NO COMPLAINTS OF PAIN OR DISCOMFORT. WILL CONTINUE TO MONITOR.
--- NOTE | 2018-10-05 14:16 | NUR ---
DOCTOR AND LEAD SUSTAINABILITY SPECIALIST AT BEDSIDE TO START US GUIDED PARACENTESIS. CONSENT HAS BEEN SIGNED AND PLACED IN THE CHART.
--- NOTE | 2018-10-05 15:01 | NUR ---
PER US TECH, 4600 ML FLUID REMOVED DURING US GUIDE PARACENTESIS.
--- NOTE | 2018-10-05 15:21 | NUR ---
PT STATES HE DOES NOT FEEL WELL ENOUGH TO GO HOME TODAY. STATES THERE IS PAIN AT ACCESS SITE FOR PARACENTESIS, BUT REFUSING PAIN MEDS AT THIS TIME. PT HAD PERIOD OF TACHYCARDIA HR ~140S ON MONITOR. PUT PT ON 2L O2. PAGED DR. GRUBBS.
--- NOTE | 2018-10-05 15:42 | NUR ---
NOTIFIED DR. GRUBBS THAT PT DOES NOT FEEL WELL ENOUGH TO GO HOME. ALSO NOTIFIED THAT PT HAD PERIOD OF TACHYCARDIA IN ~140S ON TELE MONITOR AND 4600ML TAKEN OUT FROM US GUIDED PARACENTESIS. PER DR. GRUBBS, PT CAN STAY AT HOSPITAL TODAY/TONIGHT.
[2018-10-05 16:00] VITALS: BP 115/53
--- NOTE | 2018-10-05 16:15 | NUR ---
SMALL AMOUNT OF CLEAR DRAINAGE FROM PARACENTESIS ACCESS SITE. COVERED WITH GAUZE AND TAPE. PATIENT DENIES PAIN AND DISCOMFORT. WILL CONTINUE TO MONITOR. Addendum: 10/05/18 at 1652 by Ashlee Lozano Meng, RN VS STABLE
--- NOTE | 2018-10-05 19:20 | NUR ---
ENDORSED PLAN OF CARE TO EVALUATION SPECIALIST RN. PT IN STABLE CONDITION.
--- NOTE | 2018-10-05 19:21 | NUR ---
RECEIVED REPORT FROM DAY SHIFT NURSE YANY-RN AT BEDSIDE. AOX4, FAMILY AT BEDSIDE, ON ROOM AIR- LUNGS CTA, IV SITE ON LEFT AC #20G-SL. HEART RHYTHM REGULAR. SCROTAL AND PENILE EDEMA NOTED. ASCITES. ABDOMEN LARGE AND DISTENDED- S/P PARACENTESIS 4,600ML REMOVED. NO TENDERNESS TO LIGHT PALPATION. BILATERAL LE 3+ PITTING EDEMA. NEEDS ASSISTANCE WITH URINAL. DISCUSSED PLAN OF CARE AND PT VERBALIZED UNDERSTANDING. NO S/S OF RESPIRATORY DISTRESS OR DISCOMFORT NOTED AT THIS TIME. BED IN LOWEST POSITION, BED BREAKS ON, BOTH SIDE RAILS UP AND BED ALARM ON. BED SIDE TABLE AND CALL LIGHT ARE WITHIN REACH. WILL CONTINUE TO MONITOR.
[2018-10-05 20:00] VITALS: BP 110/53
--- NOTE | 2018-10-05 20:00 | NUR ---
VITAL SIGNS TAKEN AND TOLERATED WELL. NO S/S OF RESPIRATORY DISTRESS OR DISCOMFORT NOTED AT THIS TIME. WILL CONTINUE TO MONITOR.
--- NOTE | 2018-10-05 20:05 | NUR ---
SCHEDULED MEDICATION GIVEN AND TOLERATED WELL. NO S/S OF RESPIRATORY DISTRESS OR DISCOMFORT NOTED AT THIS TIME. WILL CONTINUE TO MONITOR.
--- NOTE | 2018-10-05 22:00 | NUR ---
PT SLEEPING IN BED. NO S/S OF RESPIRATORY DISTRESS OR DISCOMFORT NOTED AT THIS TIME. WILL CONTINUE TO MONITOR.
[2018-10-06] VITALS: BP 115/56
--- NOTE | 2018-10-06 | NUR ---
VITAL SIGNS TAKEN AND TOLERATED WELL. NO S/S OF RESPIRATORY DISTRESS OR DISCOMFORT NOTED AT THIS TIME. WILL CONTINUE TO MONITOR.
--- NOTE | 2018-10-06 02:00 | NUR ---
PT CONTINUES TO SLEEP. NO S/S OF RESPIRATORY DISTRESS OR DISCOMFORT NOTED AT THIS TIME. WILL CONTINUE TO MONITOR.
[2018-10-06 04:00] VITALS: BP 120/54
--- NOTE | 2018-10-06 04:00 | NUR ---
VITAL SIGNS TAKEN AND TOLERATED WELL. NO S/S OF RESPIRATORY DISTRESS OR DISCOMFORT NOTED AT THIS TIME. WILL CONTINUE TO MONITOR.
--- NOTE | 2018-10-06 06:00 | NUR ---
PT SLEEPING IN BED. NO S/S OF RESPIRATORY DISTRESS OR DISCOMFORT NOTED AT THIS TIME. WILL CONTINUE TO MONITOR.
--- NOTE | 2018-10-06 07:26 | NUR ---
ENDORSED PT CARE TO DAY SHIFT NURSE CHERI-RN FOR CONTINUITY OF CARE.
[2018-10-06 08:00] VITALS: BP 122/56
[2018-10-06] MEDS: PROPRANOLOL 20 MG TAB PO SCH (09:21)
[2018-10-06] MEDS: SPIRONOLACTONE 50 MG TAB PO SCH (09:21)
[2018-10-06] MEDS: PANTOPRAZOLE 40 MG TABEC PO SCH (09:21)
[2018-10-06] MEDS: FUROSEMIDE 40 MG TAB PO SCH (09:22)
[2018-10-06] MEDS: FERROUS SULFATE 325 MG TABEC PO SCH (09:22)
[2018-10-06 12:30] VITALS: BP 130/60
--- NOTE | 2018-10-06 13:24 | NUR ---
FOR D/C HOME AND D/C INSTRUCTIONS GIVEN AND UNDERSTOOD.no prescriptions.iv dcd and tele also removed.taken by w/c to front entrance and ride waiting for him.
== END 2018-10-06 13:30 | disposition home or self-care (01) ==
LOC: MED 09:15 → MTU 13:26
PROVIDERS: ADMIT Hospitalist; ATTEND Hospitalist
PROC: 0W9G3ZZ Drainage of Peritoneal Cavity, Percutaneous Approach (ICD-10-PCS; principal; 2018-10-04)
DX: K74.60 Unspecified cirrhosis of liver (principal); D69.6 Thrombocytopenia, unspecified; I50.9 Heart failure, unspecified; K72.90 Hepatic failure, unspecified without coma; K76.6 Portal hypertension; E88.09 Other disorders of plasma-protein metabolism, not elsewhere classified; R18.8 Other ascites; D64.9 Anemia, unspecified; F10.10 Alcohol abuse, uncomplicated; D63.8 Anemia in other chronic diseases classified elsewhere
CPT/HCPCS: 36415; 49083; 71045; 76705; 80053; 80305; 81001; 82009; 82140; 82150; 83605; 83690; 83735; 84550; 85025; 85610; 87081; 96374; 99285; G0482; J1940; J2001; P9046; Q0092

== ENCOUNTER 2018-12-18 07:12 | Day surgery (SDC) | payer OTHER ==
[~2018-12-18] VITALS: Ht 175.3 cm; Wt 113.4 kg
[~2018-12-18 07:12] MED LIST changes: -AMOX500C25 PO; -CLAR500T PO; +FERR325E14 PO
[2018-12-18] MEDS ORDERED: LIDOCAINE VISCOUS 2% 20 ML UDC ONE (08:49)
== END 2018-12-18 10:20 | disposition home or self-care (01) ==
LOC: MDS 07:12 → MMU 07:13 → MDS 10:20
PROVIDERS: ATTEND Internal Medicine Gastroenterology
DX: I85.00 Esophageal varices without bleeding (principal); K70.31 Alcoholic cirrhosis of liver with ascites; K31.9 Disease of stomach and duodenum, unspecified; Z98.890 Other specified postprocedural states; Z87.891 Personal history of nicotine dependence; Z79.2 Long term (current) use of antibiotics; Z79.899 Other long term (current) drug therapy; E66.9 Obesity, unspecified; Z68.36 Body mass index [BMI] 36.0-36.9, adult; Z83.3 Family history of diabetes mellitus; I10 Essential (primary) hypertension; F12.11 Cannabis abuse, in remission; F10.21 Alcohol dependence, in remission

== ENCOUNTER 2019-05-07 06:32 | Day surgery (SDC) | payer OTHER ==
[~2019-05-07] VITALS: Ht 175.3 cm; Wt 113.9 kg
[2019-05-07] MEDS ORDERED: MIDAZOLAM 2 MG/2 ML VIAL ONE (08:34)
[2019-05-07] MEDS ORDERED: fentaNYL 0.05 MG/ML VIAL ONE (08:34)
[2019-05-07] MEDS ORDERED: MIDAZOLAM 2 MG/2 ML VIAL IVP ONE (16:15)
== END 2019-05-07 09:40 | disposition home or self-care (01) ==
LOC: MDS 06:32 → MMU 06:33 → MDS 09:40
PROVIDERS: ATTEND Internal Medicine Gastroenterology
DX: K70.30 Alcoholic cirrhosis of liver without ascites (principal); I85.10 Secondary esophageal varices without bleeding; E66.9 Obesity, unspecified; I10 Essential (primary) hypertension; F10.988 Alcohol use, unspecified with other alcohol-induced disorder; Z87.891 Personal history of nicotine dependence; Z79.2 Long term (current) use of antibiotics; Z79.899 Other long term (current) drug therapy; Z98.890 Other specified postprocedural states; Z68.37 Body mass index [BMI] 37.0-37.9, adult
CPT/HCPCS: 43244; J2250; J3010

== ENCOUNTER 2019-07-01 09:42 | Inpatient (IN) | payer OTHER ==
[~2019-07-01] VITALS: Ht 175.3 cm; Wt 107.0 kg
[2019-07-01 09:55] VITALS: BP 108/50
--- NOTE | 2019-07-01 10:14 | NUR ---
XRAY AT BEDSIDE
[2019-07-01] MEDS ORDERED: NACL 0.9% 1,000 ML IV ONE ×2 (10:15→11:20)
--- NOTE | 2019-07-01 10:15 | NUR ---
PT BIB FOR GEN WEAKNESS, AND DIZZINESSS. PT HAS HX LIVER CIRRHOSIS , HTN, ANEMINA. PT STATES HE MAY HAVE BEEN HAVING DARK BLOODY STOOLS LATELY. PT ABD IS LARGE, ROUND, FIRM, NON TENDER, NO ABD PAIN. PT HAS PAIN TO LOWER RIGHT LEG, LUMP NOTED W/ REDNESS AND TENDERNESS. PT HAS BL LEG EDEMA NON PITTING. SKIN IS JAUNDICED. PT IS AWAKE AND ACTING APPROPRIATE. AT BEDSIDE.
[2019-07-01 10:41] LABS: RED BLOOD CELL COUNT(AUTO) 1.58 MIL/uL (4.20-6.10); WHITE BLOOD COUNT (AUTO) 12.1 K/uL (4.8-10.8)
[2019-07-01 10:48] LABS: MEAN CORPUSCULAR HEMOGLOBIN 35 pg (27-31); MEAN CORPUSCULAR HGB CONC 31 g/dL (33-37); MEAN CORPUSCULAR VOLUME 111.4 fL (80-94); PLATELET COUNT (AUTO) 77 K/uL (140-450)
[2019-07-01 10:55] LABS: HEMATOCRIT 17.6 % (36-52); HEMOGLOBIN 5.4 g/dL (12.0-18.0)
[2019-07-01 10:56] LABS: PROTHROMBIN TIME 16.8 secs (10.8-13.4)
[2019-07-01] MEDS ORDERED: MORPHINE SULFATE 4 MG/ML SYR IVP ONE (11:05)
[2019-07-01 11:07] LABS: ALBUMIN 1.3 g/dL (3.4-5.0); CARBON DIOXIDE 12.8 mmol/L (21-32); POTASSIUM 5.8 mmol/L (3.5-5.1); TOTAL BILIRUBIN 2.7 mg/dL (0.0-1.0)
--- NOTE | 2019-07-01 11:15 | NUR ---
PT BP 95/33, DR YEPEZ MADE AWARE, WILL HOLD MORPHINE AT THIS TIME AND MEDICATE WITH TORADOL.
[2019-07-01 11:16] LABS: CREATININE 4.2 mg/dL (0.7-1.3)
[2019-07-01] MEDS ORDERED: KETOROLAC 30 MG/ML VIAL IVP ONE (11:20)
[2019-07-01 11:25] LABS: BASOPHILS % (MANUAL) 0 % (0-2); EOSINOPHILS % (MANUAL) 0 % (0-4); LYMPHOCYTES % (MANUAL) 7 % (20-46); MONOCYTES % (MANUAL) 4 % (5-12)
[2019-07-01] MEDS ORDERED: SODIUM POLYSTYRENE 15 GM/60 ML UDBTL PO ONE (11:40)
[2019-07-01 12:06] LABS: APPEARANCE,URINE CLEAR (CLEAR); BILIRUBIN,URINE NEGATIVE (NEGATIVE); BLOOD, URINE NEGATIVE (NEGATIVE); COLOR,URINE YELLOW (YELLOW); LEUKOCYTE ESTERASE ,URINE NEGATIVE (NEGATIVE); NITRITE, URINE NEGATIVE (NEGATIVE); UGLUCOSE NEGATIVE (NEGATIVE)
[2019-07-01] MEDS ORDERED: NACL 0.45% 1,000 ML IV SCH (12:36)
[2019-07-01] MEDS ORDERED: ONDANSETRON 4 MG/2 ML VIAL IVP PRN (12:40)
--- NOTE | 2019-07-01 12:57 | NUR ---
US AT BEDSIDE
[2019-07-01 13:30] VITALS: BP 102/51
--- NOTE | 2019-07-01 13:30 | NUR ---
PATIENT ARRIVED FROM ER VIA GURNEY. TRANSFERRED FROM ER BED TO [facility] BED SAFELY. NO DISTRESS NOTED. AAOX4, CALM, COOPERATIVE, SKIN COLOR PALE. RESPIRATIONS EVEN, UNLABORED, ON ROOM AIR. IV SITE INTACT, PATENT, ON SALINE LOCK. REVIEWED PLAN OF CARE WITH PATIENT. ORIENTED PATIENT TO ROOM AND CALL LIGHT. SAFETY MEASURES IN PLACE, CALL LIGHT WITHIN REACH. WILL CONTINUE TO MONITOR.
--- NOTE | 2019-07-01 13:30 | NUR ---
DPatient will be admitted to care of DR MENG. Admited to TELE. Will go to [id number]. Belongings list completed. Report to RUI GARCIA.
--- NOTE | 2019-07-01 14:38 | NUR ---
CALLED DR. LOULOU EPPERSON [phone] OFFICE EDE TO SHERIF ERWIN REVIEW [facility] SAMPLE REPORT
[2019-07-01] MEDS ORDERED: PANTOPRAZOLE 40 MG INJ VIAL IVP SCH (15:00)
--- NOTE | 2019-07-01 15:00 | NUR ---
CALLED LAB TO CHECK IF 2 UNITS OF BLOOD WAS ORDERED. PER LAB IT WAS ORDERED THROUGH [facility] AND WILL TAKE TAKE TO ARRIVE, POSSIBLY TONIGHT OR TOMORROW.
--- NOTE | 2019-07-01 15:07 | NUR ---
CALLED DR. LOULOU EPPERSON OFFICE [phone] EDE TO REPAGE REVIEW [facility] SAMPLE REPORT
--- NOTE | 2019-07-01 15:30 | NUR ---
PATIENT LYING DOWN IN BED WATCHING TV. NO DISTRESS NOTED. DENIES ANY PAIN. SCHEDULED MEDICATIONS DUE GIVEN. WILL CONTINUE TO MONITOR.
[2019-07-01 16:00] VITALS: BP 100/53
--- NOTE | 2019-07-01 16:25 | NUR ---
CALLED DR EILEEN MENG [facility] [phone] REVIEW CRITICAL [facility] SAMPLE REPORT RANDA GORMAN MD
--- NOTE | 2019-07-01 16:26 | NUR ---
CALL BACK FROM DR EILEEN MENG REVIEWED CRITICAL [facility] SAMPLE REPORT N O NEW ORDERS Addendum: 07/01/19 at 1630 by Linden Rosales RT N O = NO Addendum: 07/01/19 at 1631 by Linden Rosales RT DENIZ PAN
[2019-07-01 17:07] LABS: ANION GAP 18.6 (8-16); CARBON DIOXIDE 11.3 mmol/L (21-32); POTASSIUM 5.9 mmol/L (3.5-5.1)
[2019-07-01 17:11] LABS: CREATININE 4.1 mg/dL (0.7-1.3)
--- NOTE | 2019-07-01 17:13 | NUR ---
PAGED DR. MENG FOR CRITICAL LAB VALUE. AWAITING FOR CALL BACK
--- NOTE | 2019-07-01 18:00 | NUR ---
NO CALL BACK FROM DR. MENG REGARDING CRITICAL VALUE OF K=5.9. PAGED DR[address] MENG AGAIN. WILL CONTINUE TO MONITOR.
[2019-07-01] MEDS: ALBUMIN HUMAN 25% 100 ML IV SCH ×2 (18:17→23:13)
--- NOTE | 2019-07-01 18:23 | NUR ---
PATIENT LYING DOWN IN BED TALKING WITH FAMILY MEMBERS AT BEDSIDE. NO DISTRESS NOTED. DENIES ANY PAIN. SCHEDULED MEDICATIONS DUE GIVEN. WILL CONTINUE TO MONITOR.
--- NOTE | 2019-07-01 19:00 | NUR ---
NO CALL BACK FROM DR. MENG. WILL NOTIFY NIGHT RN TO FOLLOW UP ON CRITICAL VALUE OF K=5.9.
--- NOTE | 2019-07-01 19:28 | NUR ---
GAVE REPORT TO RESEARCH AND DEVELOPMENT MANAGER NURSE FOR CONTINUITY OF CARE. PATIENT IN STABLE CONDITION.
--- NOTE | 2019-07-01 19:29 | NUR ---
REPORT RECEIVED FROM AM NURSE AT BEDSIDE. PT IN STABLE CONDITION. AAOX4. INTRODUCED SELF TO PT. BOARD UPDATED. NO COMPLAINTS OF PAIN. NO SOB. AFEBRILE. PT IS AMBULATORY. PT HAS +2 PITTING EDEMA OF THE LOWER EXTREMITIES. IV SITE L AC 20G RUNNING ALBUMIN@50MLHR PATENT AND INTACT. SKIN WARM, DRY, AND INTACT WITH NO OPEN WOUNDS. BED LOCKED IN LOW POSITION. CALL MEADOWS WITHIN REACH. SAFETY PRECAUTION IN PLACE. ALL NEEDS MET AT THIS TIME.
[2019-07-01 20:00] VITALS: BP 100/33
[2019-07-01] MEDS ORDERED: NACL 0.9% 500 ML IV ONE (20:05)
--- NOTE | 2019-07-01 20:15 | NUR ---
PT BP DECREASED AT 92/29, 95/19, 100/33. WILL NOTIFY
--- NOTE | 2019-07-01 20:20 | NUR ---
MD CALL BACK. NOTIFIED HIM OF DECREASED BP. MD ORDERED 500ML BOLUS OF NS. TORB. NEW ORDER PUT IN.
[2019-07-01] MEDS ORDERED: SODIUM BICARBONATE 8.4% 50 MEQ/50 ML VIAL INJ ONE (21:00)
--- NOTE | 2019-07-01 21:03 | NUR ---
NS BOLUS STARTED.
--- NOTE | 2019-07-01 21:53 | NUR ---
SODIUM BICARB GIVEN IVP. PT TOLERATED WELL.
[2019-07-01] MEDS ORDERED: PATIROMER CALCIUM SORBITEX 8.4 GM PKT PO SCH (22:00)
--- NOTE | 2019-07-01 22:25 | NUR ---
VELTASSA GIVEN PO. PT TOLERATED WELL.
--- NOTE | 2019-07-01 23:13 | NUR ---
ALBUMIN HUNG AND RUNNING. PT TOLERATING WELL.
[2019-07-02] VITALS: BP 107/50
--- NOTE | 2019-07-02 00:22 | NUR ---
BLOOD PICKED UP. WILL START TRANSFUSION. PRE V/S ARE BP 109/53, HR 82, TEMP 97.9, RESP 18, 0/10 PAIN.
--- NOTE | 2019-07-02 01:45 | NUR ---
PT SLEEPING COMFORTABLY WHILE RECEIVING BLOOD. NO S/S OF DISTRESS NOTED. NO S/S OF BLOOD TRANSFUSION RELATED REACTIONS. WILL CONTINUE TO MONITOR.
--- NOTE | 2019-07-02 03:40 | NUR ---
1ST UNIT OF BLOOD COMPLETE.
[2019-07-02 04:00] VITALS: BP 120/62
--- NOTE | 2019-07-02 04:10 | NUR ---
2ND UNIT OF BLOOD STARTED.
--- NOTE | 2019-07-02 06:00 | NUR ---
PT IV SITE LEAKING. IV D/C. CANNULA INTACT. WILL INSERT NEW IV.
--- NOTE | 2019-07-02 06:10 | NUR ---
NEW IV INSERTED R AC 20G. BLOOD CONTINUED.
--- NOTE | 2019-07-02 06:30 | NUR ---
PT IN STABLE CONDITION. WILL CONTINUE TO MONITOR.
--- NOTE | 2019-07-02 07:00 | NUR ---
OR NURSES AT BEDSIDE TO TAKE PATIENT FOR EGD. PER OR NURSE, THEY WILL FINISH GIVING THE BLOOD AT OR.
[2019-07-02] MEDS ORDERED: MIDAZOLAM 2 MG/2 ML VIAL ONE ×2 (07:03)
[2019-07-02] MEDS ORDERED: fentaNYL 0.05 MG/ML VIAL ONE (07:03)
[2019-07-02] MEDS ORDERED: diphenhydrAMINE 50 MG/ML VIAL ONE (07:03)
[2019-07-02] MEDS ORDERED: fentaNYL 0.05 MG/ML VIAL IVP ONE (07:40)
[2019-07-02] MEDS ORDERED: MIDAZOLAM 2 MG/2 ML VIAL IVP ONE (07:40)
[2019-07-02 08:00] VITALS: BP 97/47
--- NOTE | 2019-07-02 08:00 | NUR ---
PATIENT BACK ON UNIT FROM EGD. NO DISTRESS NOTED. V/S STABLE. PATIENT SLEEPING, AROUSABLE BY VOICE. AAOX3, CALM, COOPERATIVE, SKIN COLOR APPROPRIATE TO ETHNICITY, WARM TO TOUCH. HAS RIGHT ANKLE, AND 2 RIGHT FOREARM SKIN TEARS. ASCITES NOTED ON ABD D/T LIVER CIRRHOSIS HISTORY. IV SITE INTACT, PATENT AND INFUSING ALBUMIN. REVIEWED PLAN OF CARE WITH PATIENT. REINFORCEMENT NEEDED. SAFETY MEASURES IN PLACE, CALL LIGHT WITHIN REACH. WILL CONTINUE TO MONITOR.
--- NOTE | 2019-07-02 08:07 | NUR ---
PATIENT HAS BEEN SCREENED AND CATEGORIZED MODERATE NUTRITION RISK. PATIENT WILL BE SEEN WITHIN 3-5 DAYS OF ADMISSION. 07/05/19[address]
[2019-07-02] MEDS: PANTOPRAZOLE 40 MG INJ VIAL IVP SCH (08:50)
[2019-07-02] MEDS: SUCRALFATE 1 GM TAB PO SCH ×4 (08:50→20:38)
[2019-07-02] MEDS: ALBUMIN HUMAN 25% 100 ML IV SCH ×4 (08:50→23:35)
--- NOTE | 2019-07-02 09:08 | NUR ---
PATIENT LYING DOWN IN BED. NO DISTRESS NOTED. V/S STABLE ON ROOM AIR. AT BEDSIDE. SCHEDULED MEDICATIONS DUE GIVEN WILL CONTINUE TO MONITOR.
[2019-07-02 09:42] LABS: EOSINOPHILS # (AUTO) 0.1 K/uL (0-0.4); EOSINOPHILS % (AUTO) 0.6 % (0.0-4.0); MEAN CORPUSCULAR HGB CONC 31 g/dL (33-37); MONOCYTES # (AUTO) 0.5 K/uL (0.8-1.0); NEUTROPHILS # (AUTO) 10.4 K/uL (1.8-7.7); PLATELET COUNT (AUTO) 58 K/uL (140-450); RED BLOOD CELL COUNT(AUTO) 1.94 MIL/uL (4.20-6.10); WHITE BLOOD COUNT (AUTO) 11.8 K/uL (4.8-10.8)
[2019-07-02 09:52] LABS: BASOPHILS # (AUTO) 0.1 K/uL (0.00-0.22); BASOPHILS % (AUTO) 0.5 % (0.0-2.0); LYMPHOCYTES # (AUTO) 0.7 K/uL (2.0-11.5); LYMPHOCYTES % (AUTO) 6.2 % (20.5-51.1); MEAN CORPUSCULAR HEMOGLOBIN 32 pg (27-31); MEAN CORPUSCULAR VOLUME 100.7 fL (80-94); MONOCYTES % (AUTO) 4.4 % (1.7-9.3); NEUTROPHILS % (AUTO) 88.3 % (42.2-75.2); RED CELL DISTRIBUTION WIDTH 24.8 % (11.6-13.7)
[2019-07-02 10:00] LABS: ALBUMIN 1.6 g/dL (3.4-5.0); ANION GAP 19.7 (8-16); CARBON DIOXIDE 11.9 mmol/L (21-32); POTASSIUM 5.6 mmol/L (3.5-5.1); TOTAL BILIRUBIN 3.3 mg/dL (0.0-1.0)
[2019-07-02 10:03] LABS: CREATININE 4.3 mg/dL (0.7-1.3); HEMATOCRIT 19.5 % (36-52)
[2019-07-02 10:09] LABS: HEMOGLOBIN 6.1 g/dL (12.0-18.0)
[2019-07-02 12:00] VITALS: BP 110/44
--- NOTE | 2019-07-02 13:16 | NUR ---
PATIENT SITTING DOWN IN BED TALKING WITH FAMILY MEMBERS AT BEDSIDE. NO DISTRESS NOTED. DENIES ANY PAIN. SCHEDULED MEDICATIONS DUE GIVEN. WILL CONTINUE TO MONITOR.
--- NOTE | 2019-07-02 13:45 | NUR ---
DR. EPPERSON AT BEDSIDE REVIEWING PLAN OF CARE WITH PATIENT. WILL CONTINUE TO MONITOR.
[2019-07-02] MEDS ORDERED: SODIUM BICARBONATE 8.4% 50 MEQ/50 ML VIAL INJ ONE (13:50)
[2019-07-02] MEDS ORDERED: PATIROMER CALCIUM SORBITEX 8.4 GM PKT PO SCH (14:10)
[2019-07-02] MEDS ORDERED: SODIUM BICARBONATE 8.4% PFS 50 MEQ/50 ML SYR IVP SCH (14:30)
--- NOTE | 2019-07-02 15:53 | NUR ---
CALLED PATIENT'S PCP OFFICE [phone] [facility] OFFICE SPOKE WITH LINA MADE F/U APPOINTMENT JULY 13, AT [address] HAMMER. BRANDAN REMINDER GIVEN.
[2019-07-02 16:00] VITALS: BP 108/46
--- NOTE | 2019-07-02 16:23 | NUR ---
PATIENT SITTING IN BED WATCHING TV. NO DISTRESS NOTED. DENIES PAIN. DENIES NAUSEA. SCHEDULED MEDICATIONS DUE GIVEN. WILL CONTINUE TO MONITOR.
[2019-07-02] MEDS: OCTREOTIDE ACETATE 100 MCG/ML VIAL SUBQ SCH (17:34)
--- NOTE | 2019-07-02 18:00 | NUR ---
PATIENT SITTING IN BED WITH DINNER TRAY IN FRONT. NO DISTRESS NOTED. SCHEDULED MEDICATIONS DUE GIVEN. WILL CONTINUE TO MONITOR.
[2019-07-02] MEDS: MIDODRINE 5 MG TAB PO SCH (18:40)
--- NOTE | 2019-07-02 18:47 | NUR ---
SCHEDULED MEDICATIONS DUE GIVEN. WILL CONTINUE TO MONITOR.
--- NOTE | 2019-07-02 19:25 | NUR ---
GAVE REPORT TO SHOE FOLDER NURSE FOR CONTINUITY OF CARE. PATIENT IN STABLE CONDITION.
--- NOTE | 2019-07-02 19:26 | NUR ---
REPORT RECEIVED FROM AM NURSE AT BEDSIDE. PT IN STABLE CONDITION. AAOX4. BOARD UPDATED. NO SOB. PT IS AMBULATORY. PT HAS +2 PITTING EDEMA OF THE LOWER EXTREMITIES. IV SITE R AC 20G PATENT AND INTACT. SKIN WARM, DRY. BED LOCKED IN LOW POSITION. CALL MEADOWS WITHIN REACH. SAFETY PRECAUTION IN PLACE. ALL NEEDS MET AT THIS TIME.
[2019-07-02 20:00] VITALS: BP 99/44
--- NOTE | 2019-07-02 20:38 | NUR ---
GIVEN CARAFATE MD ORDERED. PT TOLERATED WELL
[2019-07-02] MEDS: MORPHINE SULFATE 4 MG/ML SYR IVP PRN (23:42)
--- NOTE | 2019-07-02 23:42 | NUR ---
GIVEN ALBUMIN. PT C.O ABD PAIN 07/10 AND CONSTIPATION. CALLED DIRECT CARE SPECIALIST DR. MOJICA AND RECEIVED ORDER OF MORPHINE AND COLACE. TORB. GIVEN MORPHINE MD ORDERED. PT TOLERATED WELL.
[2019-07-03] VITALS: BP 96/47
--- NOTE | 2019-07-03 02:25 | NUR ---
VS CHECKED FOR PRE BLOOD TRANSFUSION, 97.9, 64, 18, 95/55, 100%
--- NOTE | 2019-07-03 02:40 | NUR ---
BLOOD TRANSFUSION STARTED. NO ADVERSE REACTION NOTED. PT TOLERATED WELL. WILL CONTINUE TO MONITOR.
[2019-07-03 04:00] VITALS: BP 96/47
--- NOTE | 2019-07-03 04:15 | NUR ---
PT RECEIVING BLOOD TRANSFUSION. NO ADVERSE REACTION NOTED. WILL CONTINUE TO MONITOR.
--- NOTE | 2019-07-03 05:40 | NUR ---
1ST UNIT OF BLOOD TRANSFUSION DONE. PT TOLERATED WELL.
[2019-07-03] MEDS: MIDODRINE 5 MG TAB PO SCH ×3 (06:08→18:36)
[2019-07-03] MEDS: ALBUMIN HUMAN 25% 100 ML IV SCH ×3 (06:10→18:37)
--- NOTE | 2019-07-03 06:10 | NUR ---
GIVEN ALBUMIN MD ORDERED. PT TOLERATED WELL.
[2019-07-03 06:44] LABS: BASOPHILS % (AUTO) 0.3 % (0.0-2.0); EOSINOPHILS # (AUTO) 0.1 K/uL (0-0.4); EOSINOPHILS % (AUTO) 0.9 % (0.0-4.0); LYMPHOCYTES # (AUTO) 0.7 K/uL (2.0-11.5); MEAN CORPUSCULAR HEMOGLOBIN 33 pg (27-31); MEAN CORPUSCULAR HGB CONC 33 g/dL (33-37); MEAN CORPUSCULAR VOLUME 99.1 fL (80-94); MONOCYTES # (AUTO) 0.5 K/uL (0.8-1.0); MONOCYTES % (AUTO) 5.6 % (1.7-9.3); NEUTROPHILS # (AUTO) 8.1 K/uL (1.8-7.7); PLATELET COUNT (AUTO) 45 K/uL (140-450); RED BLOOD CELL COUNT(AUTO) 1.84 MIL/uL (4.20-6.10); RED CELL DISTRIBUTION WIDTH 25.3 % (11.6-13.7); WHITE BLOOD COUNT (AUTO) 9.4 K/uL (4.8-10.8)
[2019-07-03 06:59] LABS: HEMATOCRIT 18.3 % (36-52)
--- NOTE | 2019-07-03 07:00 | NUR ---
LAB CALLED FOR HGB 6.0, ACT 18.3. NOTED THE BLOOD DRAWN BEFORE BLOOD TRANSFUSION. PAGED TO INFORM.
--- NOTE | 2019-07-03 07:08 | NUR ---
GOT BEDSIDE REPORT FROM APARTMENT GROUNDSKEEPER NURSE. PATIENT ON MED SURGE FLOOR WITH STANDARD PRECAUTIONS IN PLACE. PATIENT AAOX4, ON ROOM AIR, NO DISTRESS NOTED. PATIENT BEDREST WITH WOUND ON LUE, RLE, DRESSINGS CLEAN DRY AND INTACT. PATIENT CONTINENT. IV ON R AC 20 G SALINE LOCK, IV PATENT AND INTACT. BED IN LOW POSITION, CALL LIGHT WITHIN REACH, SIDE RAILS X2UP
--- NOTE | 2019-07-03 07:08 | NUR ---
GOT BEDSIDE REPORT FROM EMBEDDED SOFTWARE ENGINEER NURSE. PATIENT ON MED SURGE FLOOR AND STANDARD PRECAUTIONS IN PLACE. PATIENT AAOX4, ON ROOM AIR, NO DISTRESS NOTED. L FOOT 1ST AND 3RD DIGITS AMPUTATED, DRESSING CLEAN DRY AND ITNACT. PATIENT AMBULATORY. IV ON L FA 22 G INFUSING NS AT 60, IV PATENT AND INTACT. BED IN LOW POSITION, CALL LIGHT WITHIN REACH, SIDE RAILS X2 UP Addendum: 07/03/19 at 1232 by Katherine Cleary RN PLEASE DISREGARD ABOVE NOTE. DOCUMENTED UNDER WRONG PATIENT
[2019-07-03 07:19] LABS: LYMPHOCYTES % (AUTO) 7.2 % (20.5-51.1)
[2019-07-03 07:39] LABS: ALBUMIN 2.5 g/dL (3.4-5.0); ANION GAP 18.2 (8-16); POTASSIUM 5.2 mmol/L (3.5-5.1); TOTAL BILIRUBIN 3.3 mg/dL (0.0-1.0)
[2019-07-03 07:46] LABS: CREATININE 4.3 mg/dL (0.7-1.3)
[2019-07-03 08:00] VITALS: BP 108/52
--- NOTE | 2019-07-03 10:20 | NUR ---
ADMINISTERED SCHEDULED MEDS, PATIENT TOLERATED WELL
[2019-07-03] MEDS: SUCRALFATE 1 GM TAB PO SCH ×4 (10:43→20:27)
[2019-07-03] MEDS: DOCUSATE SODIUM 100 MG GELCAP PO SCH ×2 (10:44→20:27)
[2019-07-03] MEDS: PANTOPRAZOLE 40 MG INJ VIAL IVP SCH (10:44)
[2019-07-03] MEDS: OCTREOTIDE ACETATE 100 MCG/ML VIAL SUBQ SCH ×3 (10:46→16:51)
[2019-07-03] MEDS: MORPHINE SULFATE 4 MG/ML SYR IVP PRN (11:39)
--- NOTE | 2019-07-03 11:45 | NUR ---
FRENCH CATHETER INSERTED Addendum: 07/03/19 at 1145 by Katherine Cleary RN ORDERED
[2019-07-03 12:00] VITALS: BP 124/49
--- NOTE | 2019-07-03 13:38 | NUR ---
ADMINISTERED SCHEDULED MEDS. PATIENT TOLERATED WELL
--- NOTE | 2019-07-03 15:20 | NUR ---
PATIENT SLEEPING, ON ROOM AIR, NO DISTRESS NOTED
[2019-07-03 16:00] VITALS: BP 135/66
[2019-07-03] MEDS: SODIUM BICARBONATE 8.4% 150 MEQ in DEXTROSE 5% 1,000 ML IV SCH (16:50)
--- NOTE | 2019-07-03 17:43 | NUR ---
PATIENT AND FAMILY STATED THAT THEY DO NOT WISH TO GO THROUGH WITH DIALYSIS. PATIENT'S STATED SHE SPOKE TO HER SONS REGARDING HIS PLAN OF CARE AND THEY ALL AGREE TO NOT HAVE DIALYSIS DONE ON PATIENT. DR. ANAYA MADE AWARE AND CHARGE NURSE, AMI MADE AWARE. DR. ANAYA STATED TO HAVE PHARMACY CONCENTRATE ALL IV FLUIDS FOR PATIENT AND TO DECREASE RATE OF SODIUM BICARBONATE TO 40/HR.
--- NOTE | 2019-07-03 19:10 | NUR ---
GAVE BEDSIDE REPORT TO RUI DOMINGUEZ. PATIENT ENDORSED IN STABLE CONDITION
--- NOTE | 2019-07-03 19:20 | NUR ---
RECEIVED PT IN STABLE CONDITION FROM AM NURSE . AWAKE,ALERT AND ORIENTED X4. ON BEDREST. TELE PT --SR. WITH NO C/O ANY DISCOMFORT NOR PAIN NOTED . FAMILY AT BEDSIDE. HAS IVF INFUSING WELL ON THE RT AC G320 . CLEAR AND PATENT. LT FA HAS DRESSING ,INTACT. FRENCH CATHETER TO GRAVITY . PLAN OF CARE HAS BEEN DISCUSSED AND ,VERBALIZED UNDERSTANDING. BED ON LOW POSITION. FREQUENT ROUNDS NEEDED. CALL LIGHT PLACED WITHIN EASY REACH, SIED RAILS UP X2. WILL CONTINUE TO MONITOR.
[2019-07-03 19:45] VITALS: BP 112/61
--- NOTE | 2019-07-03 20:27 | NUR ---
PT ABLE TO TAKE SCHEDULED NIGHT MEDS. NO C/O ANY PAIN NOTED.
--- NOTE | 2019-07-03 22:30 | NUR ---
MADE ROUNDS. PT ASLEEP. NO S/S OF ANY DISCOMFORT /PAIN AND DISTRESS NOTED. WILL CONTINUE TO MONITOR.
[2019-07-04] MEDS ORDERED: ALBUMIN HUMAN 25% 100 ML IV ONE (00:07)
[2019-07-04 00:16] VITALS: BP 122/61
[2019-07-04] MEDS: ALBUMIN HUMAN 25% 100 ML IV SCH ×4 (00:24→18:01)
--- NOTE | 2019-07-04 00:30 | NUR ---
PT IS ON STABLE CONDITION .NO C/O ANY DISCOMFORT NOTED.
--- NOTE | 2019-07-04 03:00 | NUR ---
MADE ROUNDS.PT ASLEEP. NO S/S OF ANY DISCOMFORT NOTED.
[2019-07-04 04:00] VITALS: BP 126/63
[2019-07-04] MEDS: SODIUM BICARBONATE 8.4% 150 MEQ in DEXTROSE 5% 1,000 ML IV SCH (05:55)
--- NOTE | 2019-07-04 06:00 | NUR ---
SKIN TEARS FROM ON THE RT LOWER LEG AND LT ARM DRAINING.DRESSING WAS CHANGED THIS AM.
[2019-07-04] MEDS: MIDODRINE 5 MG TAB PO SCH ×3 (06:36→17:59)
[2019-07-04 06:39] LABS: MEAN CORPUSCULAR HEMOGLOBIN 32 pg (27-31); MEAN CORPUSCULAR HGB CONC 33 g/dL (33-37); MEAN CORPUSCULAR VOLUME 96.1 fL (80-94); PLATELET COUNT (AUTO) 38 K/uL (140-450); RED BLOOD CELL COUNT(AUTO) 1.86 MIL/uL (4.20-6.10); RED CELL DISTRIBUTION WIDTH 24.5 % (11.6-13.7); WHITE BLOOD COUNT (AUTO) 7.9 K/uL (4.8-10.8)
[2019-07-04 06:57] LABS: ANION GAP 20.4 (8-16); CARBON DIOXIDE 13.6 mmol/L (21-32); CREATININE 3.9 mg/dL (0.7-1.3)
[2019-07-04 06:58] LABS: HEMATOCRIT 17.9 % (36-52)
--- NOTE | 2019-07-04 07:20 | NUR ---
HGB 6.0 AND HCT 17.[address] VAL[address] MENG, ICU TECH.WAITING FOR CALL BACK. ENDORSED THIS AND PT IN STABLE CONDITION TO AM NURSE.
[2019-07-04 07:28] LABS: BASOPHILS % (MANUAL) 0 % (0-2); EOSINOPHILS % (MANUAL) 1 % (0-4); LYMPHOCYTES % (MANUAL) 8 % (20-46); MONOCYTES % (MANUAL) 4 % (5-12)
--- NOTE | 2019-07-04 07:30 | NUR ---
RECEIVED REPORT FROM MAINTENANCE FOREMAN NURSE. PT AAOX4, NO C/O PAIN. RESPIRATIONS EVEN AND UNLABORED ON RA. STOMACH IS ROUND AND SOFT, ACTIVE BS. PT F/C IN PLACE, NO URINE IN COLLECTION BAG. WOUND DRESSINGS TO RT LEG AND LT ARM NOTED, CLEAN, DRY AND INTACT, SKIN IS WARM TO TOUCH. IV ON RT AC 20 GA RUNNING IVF PER ORDER. 2+ PITTING EDEMA NOTED TO BLE. PT IS ON FALL RISK, SAFETY MEASURES IN PLACE, BED ON LOW POSITION. PT IS AWARE THAT HE NEEDS TO INFORM STAFF WHEN HE GETS OUT OF BED. REVIEWED POC WITH PT, PT VERBALIZED UNDERSTANDING.+
--- NOTE | 2019-07-04 07:46 | NUR ---
RECEIVED CALL FROM DR. ANAYA AND MADE AWARE REGARDING BUN LEVEL OF 74. ORDERS RECEIVED AND CARRIED OUT.
--- NOTE | 2019-07-04 07:59 | NUR ---
PAGED DR. NICHOLSON FOR THE SECOND TIME TO REPORT CRITICAL LAB, AWAITING CALL BACK.
[2019-07-04 08:00] VITALS: BP 120/55
--- NOTE | 2019-07-04 08:30 | NUR ---
PT ACCIDENTALLY PULLED IV TUBING. LINENS CHANGED WHILE PT IN RESTROOM.
--- NOTE | 2019-07-04 08:31 | NUR ---
RECEIVED CALL FROM DR. NICHOLSON, MADE AWARE OF HGB AND HCT LEVEL. ORDERS RECEIVED AND CARRIED OUT. PT WILL COME IN THIS MORNING TO SEE PT.
--- NOTE | 2019-07-04 08:50 | NUR ---
PT PULLED OUT F/C. PT STATES "I REFUSE TO HAVE IT," EXPLAINED BENEFITS OF HAVING A F/C BUT PT STILL REFUSES. PT GIVEN URINAL. PT IS AWARE THAT HE IS ON STRICT I&O, VERBALIZES UNDERSTANDING AND KNOWS TO NOTIFY NURSE WHEN HE URINATES. IV TUBINGS CHANGED, IV ON RT AC PATENT AND FLUSHING WITH NO RESISTANCE. CONTINUED IVF PER ORDER.
[2019-07-04] MEDS: OCTREOTIDE ACETATE 100 MCG/ML VIAL SUBQ SCH ×3 (09:39→16:07)
[2019-07-04] MEDS: DOCUSATE SODIUM 100 MG GELCAP PO SCH ×2 (09:39→21:40)
[2019-07-04] MEDS: PANTOPRAZOLE 40 MG INJ VIAL IVP SCH (09:39)
[2019-07-04] MEDS: SUCRALFATE 1 GM TAB PO SCH ×4 (09:39→21:39)
[2019-07-04 12:00] VITALS: BP 103/59
--- NOTE | 2019-07-04 12:00 | NUR ---
DR. ANAYA IS AWARE THAT PT IS REFUSING F/C AND PREFERS URINAL.
[2019-07-04] MEDS: SODIUM BICARBONATE 650 MG TAB PO SCH ×2 (12:09→17:59)
--- NOTE | 2019-07-04 13:00 | NUR ---
CHANGED DRESSINGS TO RT LEG AND LT UA. PT TOLERATED WELL, NO C/O PAIN.
[2019-07-04 16:00] VITALS: BP 103/57
--- NOTE | 2019-07-04 16:30 | NUR ---
PT IS RESTING IN BED, RESPIRATIONS EVEN AND UNLABORED ON RA. NO SIGNS OF DISTRESS.
--- NOTE | 2019-07-04 19:13 | NUR ---
ENDORSED PT TO CARD PUNCHER NURSE FOR CONTINUITY OF CARE. NO SIGNS OF DISTRESS AT THIS TIME.
--- NOTE | 2019-07-04 19:15 | NUR ---
RECEIVED PT IN STABLE CONDITION TO AM NURSE. ASLEEP. WITH NO RESPIRATORY DISTRESS NOTED. ON O22L BY OXYMIZER. TELE PT-SR. PT MOANS AT TIMES. WITH NGT FEEDING GOING. NO RESIDUAL NOTED. BEDREST. WITH MULTIPLE SKIN TEARS ON BODY. WITH DRESSING. LT UPPER THIGH WITH SKIN TEAR ALSO. DRESSING IN PLACED. FRENCH CATH DRAINING TO LIGHT MYLES URINE. BED ON LOW POSITION. FREQ ROUNDS NEEDED. SIDE RAILS UP X2. CALL LIGHT WITHIN EASY REACH. WILL CONTINUE TO MONITOR.
[2019-07-04] MEDS ORDERED: ALBUMIN HUMAN 25% 50 ML IV ONE (21:00)
--- NOTE | 2019-07-04 22:25 | NUR ---
PHARMACY CALLED REGARDING THE NEW ORDER FOR ALBUMIN BY DR. ANAYA. PAGED DR. ANAYA CALLED BACK. HE SAID NOT TO GIVE ALBUMIN TONIGHT AND START THE ALBUMIN Q12H TOMORROW. PHARMACIST NOLBERTO MADE AWARE.
--- NOTE | 2019-07-04 22:59 | NUR ---
FOLLOW UP THE 2 UNITS PRBC TO BLOOD BANK , ABLE TO TALK TO TAMRA AND SHE SAID BLOOD WON'T BE READY NOT UNTIL PROBABLY [facility] [employer] IS DOWN. ABLE TO TALKED TO DR. JEAN ,BUNGY JUMP MASTER FOR DR. MENG. MADE HIM AWARE. NO NEW ORDER MADE.
[2019-07-05] MEDS: SODIUM BICARBONATE 650 MG TAB PO SCH ×4 (00:01→17:44)
--- NOTE | 2019-07-05 00:30 | NUR ---
PT INSISTED ON GETTING UP TO THE BATHROOM. PT UNSTEADY. ASSISTED BACK TO BED WITH 3 PEOPLE ASSISTANCE. VOIDE IN URINAL. SIDE RAILS UP X3. BED ALARM ON. INSTRUCTED TO CALL FOR ASSISTANCE.
--- NOTE | 2019-07-05 02:30 | NUR ---
ASLEEP. NO S/S OF ANY DISTRESS NOTED.
--- NOTE | 2019-07-05 04:03 | NUR ---
ASSISTED AGAIN TO USE URINAL . VOIDED .
[2019-07-05 04:34] VITALS: BP 98/55
[2019-07-05] MEDS: MIDODRINE 5 MG TAB PO SCH ×3 (06:44→18:37)
--- NOTE | 2019-07-05 07:05 | NUR ---
PT AWAKE. TRYING TO GET OUT OF BED. ASSISTED ONLY WITH URINAL .
--- NOTE | 2019-07-05 07:15 | NUR ---
ENDORSED PT IN STABLE CONDITION TO AM NURSE.
--- NOTE | 2019-07-05 07:17 | NUR ---
RECEIVED REPORT FROM DIRECTOR OF COMMUNITY LIFE NURSE. PT AAOx1, LETHARGIC AND SHOWS SIGNS OF CONFUSION. PT NEEDS FREQUENT REMINDERS AND REORIENTATION. FLACC 0. RESPIRATIONS EVEN AND UNLABORED ON RA. STOMACH IS ROUND, DISTENDED AND SOFT, ACTIVE BS. PT URINATED 300 ML OF MYLES URINE INTO URINAL. WOUND DRESSINGS TO RT LEG, RT ARM AND LT ARM NOTED, CLEAN, DRY AND INTACT, SKIN IS WARM TO TOUCH. IV ON RT AC 20 GA RUNNING IVF PER ORDER. 2+ PITTING EDEMA NOTED TO BLE. PT IS ON FALL RISK, SAFETY MEASURES IN PLACE, BED ON LOW POSITION. REVIEWED POC WITH PT, PT WILL NEED REINFORCEMENT.
--- NOTE | 2019-07-05 07:57 | NUR ---
PT FOUND ROLLING IN BED, [facility] GUNSMITH AND RN HELPED ASSIST WITH REPOSITIONING. PT IS LETHARGIC AND UNABLE TO ANSWER ORIENTATION QUESTIONS, AOX2 TO PERSON AND PLACE. IV ON RT HAND FOUND DISPLACE, CANNULA INTACT, WITH NO ACTIVE BLEEDING NOTED. WILL CONTINUE TO MONITOR AND REORIENT PT.
[2019-07-05 08:00] VITALS: BP 106/57
[2019-07-05 08:12] LABS: ALBUMIN 3.4 g/dL (3.4-5.0); ANION GAP 20.7 (8-16); CARBON DIOXIDE 13.2 mmol/L (21-32); CREATININE 3.4 mg/dL (0.7-1.3); POTASSIUM 4.9 mmol/L (3.5-5.1); TOTAL BILIRUBIN 5.3 mg/dL (0.0-1.0)
--- NOTE | 2019-07-05 08:35 | NUR ---
RECEIVED CALL FROM DR. NICHOLSON, UPDATED PHYSICIAN ON PT'S LABS. ORDERS RECEIVED AND CARRIED OUT.
--- NOTE | 2019-07-05 08:37 | NUR ---
PAGED DR. ANAYA TO GIVE UPDATE ON PT CONDITION AND LABS. AWAITING CALL BACK.
[2019-07-05 08:46] LABS: MEAN CORPUSCULAR HEMOGLOBIN 32 pg (27-31); MEAN CORPUSCULAR HGB CONC 33 g/dL (33-37); MEAN CORPUSCULAR VOLUME 96.7 fL (80-94); PLATELET COUNT (AUTO) 26 K/uL (140-450); RED BLOOD CELL COUNT(AUTO) 1.97 MIL/uL (4.20-6.10); RED CELL DISTRIBUTION WIDTH 24.7 % (11.6-13.7); WHITE BLOOD COUNT (AUTO) 11.2 K/uL (4.8-10.8)
[2019-07-05] MEDS: SUCRALFATE 1 GM TAB PO SCH ×4 (09:00→22:08)
[2019-07-05] MEDS: PANTOPRAZOLE 40 MG INJ VIAL IVP SCH (09:00)
[2019-07-05] MEDS: DOCUSATE SODIUM 100 MG GELCAP PO SCH ×2 (09:00→22:09)
--- NOTE | 2019-07-05 09:00 | NUR ---
PAGED DR. ANAYA FOR THE SECOND TIME. AWAITING CALL BACK.
--- NOTE | 2019-07-05 09:06 | NUR ---
RECEIVED CALL BACK FROM DR. SANTACRUZ. PER PHYSICIAN HE IS COVERING DR. ANAYA TODAY. GIVEN UPDATE ON PT'S BUN AND CREATININE LEVEL. NO ADDITIONAL ORDERS RECEIVED.
[2019-07-05 09:22] LABS: HEMOGLOBIN 6.3 g/dL (12.0-18.0)
[2019-07-05 09:23] LABS: LYMPHOCYTES % (MANUAL) 14 % (20-46); MONOCYTES % (MANUAL) 3 % (5-12)
--- NOTE | 2019-07-05 09:50 | NUR ---
FAMILY AT BEDSIDE. PT URINATED 210 ML OF LIGHT MYLES URINE. PT SHOWS SIGNS OF CONFUSION, PT INSISTS TO GET UP AND OUT OF BED AFTER EDUCATING PT THAT IT IS NOT SAFE SINCE HE IS UNSTEADY AND WEAK.
[2019-07-05] MEDS: OCTREOTIDE ACETATE 100 MCG/ML VIAL SUBQ SCH ×3 (11:37→17:45)
[2019-07-05 12:00] VITALS: BP 119/59
[2019-07-05] MEDS: LACTULOSE 20 GM/30 ML UDC PO SCH ×2 (12:56→17:43)
--- NOTE | 2019-07-05 14:41 | NUR ---
PT HAD MODERATE AMOUNT OF BLACK, TARRY AND PASTY STOOL. LINENS CHANGE, NITISH CARE AND SKIN CARE GIVEN TO PT.
--- NOTE | 2019-07-05 15:29 | NUR ---
HELD ROCEPHIN AT THIS TIME, PT IS UNDERGOING BLOOD TRANSFUSION.
[2019-07-05 16:00] VITALS: BP 124/79
--- NOTE | 2019-07-05 19:25 | NUR ---
ENDORSED PT TO NURSE AIDE EVALUATOR NURSE. PT HAS NO SIGNS OF DISTRESS AT THIS TIME.
--- NOTE | 2019-07-05 19:28 | NUR ---
RECEIVED PT FROM DAY SHIFT NURSE PT AOX1 EDEMATOUS WITH MULTIPLES SKIN TEARS ON ARMS AND RT LE ON TELMETRY SR HL ON LEFT HAND INITIAL ASSESSMENT DONE
[2019-07-05 20:00] VITALS: BP 116/73
[2019-07-05] MEDS: ALBUMIN HUMAN 25% 50 ML IV SCH (21:00)
--- NOTE | 2019-07-05 21:30 | NUR ---
MEIWY GIVENAS ORDER PT REPOSISTIONED Q2H FAMILYARE HERE LABORED BREATHIN ON 2 LTS VIA NC ON TELE SR
[2019-07-06] VITALS: BP 108/57
--- NOTE | 2019-07-06 | NUR ---
SPONGE BATH GIVEN LINEN CHANGED A BIG BM REPOSITIONED ON TELE SR LABORED BREATHING
[2019-07-06 04:00] VITALS: BP 99/64
[2019-07-06] MEDS: SODIUM BICARBONATE 650 MG TAB PO SCH ×4 (04:00→17:10)
--- NOTE | 2019-07-06 04:00 | NUR ---
PT REPOSITIONED LABORED BREATHING HL PATENT ON LEFT HAND ON TELE SSR
--- NOTE | 2019-07-06 05:58 | NUR ---
PT JAUNDICE, , WITH POOR APPETITE, FOLLOW COMMANDS ON TELE SR
[2019-07-06] MEDS: MIDODRINE 5 MG TAB PO SCH ×3 (06:02→18:41)
--- NOTE | 2019-07-06 07:04 | NUR ---
PT WILLBE ENDORSED TO DAY SHIFT NURSE FOR CONTINUE OF CARE
--- NOTE | 2019-07-06 07:05 | NUR ---
RECEIVED REPORT FROM CLEAN ENERGY POLICY ANALYST NURSE. PATIENT LYING DOWN IN BED SLEEPING, AROUSABLE BY VOICE. NO DISTRESS NOTED. DENIES ANY PAIN. AAOX2, CALM, COOPERATIVE, SKIN COLOR APPROPRIATE TO ETHNICITY, WARM TO TOUCH. HAS MULTIPLE SKIN TEARS ON LEFT FOREARM, AND RIGHT FOREARM, HAS RLE GRUBBS AND FOOT SKIN TEAR. DRESSING, OOZING, REINFORCED AT THIS TIME. WILL CHANGE LATER. IV SITE INTACT, PATENT, AND INFUSING IVF PER MD ORDERS. SAFETY MEASURES IN PLACE, CALL LIGHT WITHIN REACH. WILL CONTINUE TO MONITOR.
[2019-07-06 07:30] LABS: BASOPHILS % (AUTO) 0.1 % (0.0-2.0); EOSINOPHILS % (AUTO) 0.3 % (0.0-4.0); HEMATOCRIT 26.9 % (36-52); HEMOGLOBIN 8.9 g/dL (12.0-18.0); LYMPHOCYTES # (AUTO) 0.7 K/uL (2.0-11.5); LYMPHOCYTES % (AUTO) 4.9 % (20.5-51.1); MEAN CORPUSCULAR HEMOGLOBIN 32 pg (27-31); MEAN CORPUSCULAR HGB CONC 33 g/dL (33-37); MEAN CORPUSCULAR VOLUME 96.2 fL (80-94); MONOCYTES # (AUTO) 0.8 K/uL (0.8-1.0); MONOCYTES % (AUTO) 5.2 % (1.7-9.3); NEUTROPHILS # (AUTO) 13.6 K/uL (1.8-7.7); NEUTROPHILS % (AUTO) 89.5 % (42.2-75.2); PLATELET COUNT (AUTO) 39 K/uL (140-450); RED CELL DISTRIBUTION WIDTH 22.1 % (11.6-13.7)
[2019-07-06 07:53] LABS: ALBUMIN 3.3 g/dL (3.4-5.0); CREATININE 2.4 mg/dL (0.7-1.3); TOTAL BILIRUBIN 11.1 mg/dL (0.0-1.0)
[2019-07-06 07:58] LABS: CARBON DIOXIDE 14.2 mmol/L (21-32); POTASSIUM 4.7 mmol/L (3.5-5.1)
[2019-07-06 07:59] LABS: ANION GAP 19.5 (8-16)
[2019-07-06 08:00] VITALS: BP 130/85
[2019-07-06 08:23] LABS: WHITE BLOOD COUNT (AUTO) 15.1 K/uL (4.8-10.8)
--- NOTE | 2019-07-06 08:50 | NUR ---
ASSISTED PAPER STEAMER IN CLEANING AND REPOSITIONING PATIENT. PATIENT HAS LOOSE BM DUE TO LACTULOSE. PATIENT TOLERATED WELL.
[2019-07-06] MEDS: DOCUSATE SODIUM 100 MG GELCAP PO SCH ×2 (09:00→20:58)
[2019-07-06] MEDS: OCTREOTIDE ACETATE 100 MCG/ML VIAL SUBQ SCH ×3 (09:28→17:10)
[2019-07-06] MEDS: SUCRALFATE 1 GM TAB PO SCH ×4 (09:28→20:58)
[2019-07-06] MEDS: PANTOPRAZOLE 40 MG INJ VIAL IVP SCH (09:28)
[2019-07-06] MEDS: ALBUMIN HUMAN 25% 50 ML IV SCH ×2 (09:29→20:57)
[2019-07-06] MEDS: LACTULOSE 20 GM/30 ML UDC PO SCH ×3 (09:29→17:10)
--- NOTE | 2019-07-06 09:45 | NUR ---
PATIENT LYING DOWN IN BED, AT BEDSIDE. CONFUSED. SCHEDULED MEDICATIONS DUE GIVEN. DOCUSATE SODIUM NOT GIVEN AT THIS TIME D/T HAVING LOOSE STOOLS FROM LACTULOSE. WILL CONTINUE TO MONITOR.
[2019-07-06 12:00] VITALS: BP 103/50
--- NOTE | 2019-07-06 12:53 | NUR ---
PATIENT SITTING DOWN IN BED. FAMILY MEMBERS AT BEDSIDE. NO DISTRESS NOTED. FLACC 0. SCHEDULED MEDICATIONS DUE GIVEN. WILL CONTINUE TO MONITOR.
--- NOTE | 2019-07-06 13:38 | NUR ---
07/06/19 RD INITIAL ASSESSMENT COMPLETED PLEASE REFER TO NUTRITION ASSESSMENT UNDER CARE ACTIVITY FOR ESTIMATED NUTRITIONAL NEEDS. 1. CONTINUE FULL LIQUID DIET TOLERATED 2. RECOMMEND ENSURE BID 3. RD PROVIDED PATIENT AND FAMILY NUTRITION EDUCATION FOR CIRRHOSIS 4. RD TO FOLLOW-UP 3-5 DAYS, MODERATE RISK THERESE MATOS, RD
--- NOTE | 2019-07-06 15:00 | NUR ---
PATIENT SITTING IN BED TALKING WITH FAMILY MEMBERS AT BEDSIDE. NO DISTRESS NOTED. CONDITION UNCHANGED. WILL CONTINUE TO MONITOR.
[2019-07-06 16:00] VITALS: BP 125/76
--- NOTE | 2019-07-06 17:19 | NUR ---
PATIENT SITTING DOWN IN BED. CONDITION UNCHANGED. SCHEDULED MEDICATIONS DUE GIVEN. WILL CONTINUE TO MONITOR.
--- NOTE | 2019-07-06 18:47 | NUR ---
FAMILY MEMBERS AT BEDSIDE. NO DISTRESS NOTED. CONDITION UNCHANGED. SCHEDULED MEDICATIONS DUE GIVEN. WILL CONTINUE TO MONITOR.
--- NOTE | 2019-07-06 19:33 | NUR ---
GAVE REPORT TO SAUSAGE WRAPPER NURSE FOR CONTINUITY OF CARE. PATIENT IN STABLE CONDITION.
--- NOTE | 2019-07-06 19:34 | NUR ---
RECEIVED REPORT FROM AM SHIFT NURSE. PATIENT LYING DOWN IN BED SLEEPING, A O X 2, AROUSABLE BY VOICE. NO DISTRESS NOTED. DENIES ANY PAIN CALM, COOPERATIVE, SKIN COLOR APPROPRIATE TO ETHNICITY, WARM TO TOUCH. HAS MULTIPLE SKIN TEARS ON LEFT FOREARM, AND RIGHT FOREARM, HAS RLE GRUBBS AND FOOT SKIN TEAR. DRESSING, OOZING WILL REINFORCE FOR NOW AND WILL CHANGE LATER. IV SITE INTACT, PATENT,SL. SAFETY MEASURES IN PLACE, CALL LIGHT WITHIN REACH. WILL CONTINUE TO MONITOR.
[2019-07-06 20:00] VITALS: BP 114/53
--- NOTE | 2019-07-06 20:00 | NUR ---
TOOK PT'S O2 SAT 77%, GIVEN O2 AT 2LPM PRN NOW AT 90%
--- NOTE | 2019-07-06 20:30 | NUR ---
TALKED TO KEONUGTER AND . DAUGHTER CATHY SAID THAT MOM OR HER WILL BE HERE KIRSTEN AM TO TALK TO COBBLER APPRENTICE.
[2019-07-07] VITALS (7 sets, daily range): BP systolic 106–144; BP diastolic 52–74
--- NOTE | 2019-07-07 00:25 | NUR ---
PT TRYING TO GET SLEEP, FELT COLD, ADJUSTED ROOM TEMP, GAVE WARM BLANKETS
[2019-07-07] MEDS: SODIUM BICARBONATE 650 MG TAB PO SCH ×4 (00:57→17:52)
--- NOTE | 2019-07-07 03:00 | NUR ---
LEFT A MESSAGE TO RT TO CHECK PT. NO VISIT FROM RT YET AT THIS TIME
--- NOTE | 2019-07-07 04:28 | NUR ---
TALKED TO RT ON THE FLOOR TOLD HER OF THE 1 EPISODE OF DESAT AT 88%, AND FOR HER TO CHECK ON PT. RT WENT TO BEDSIDE
--- NOTE | 2019-07-07 06:25 | NUR ---
LEFT PATIENT STABLE AT THIS TIME. NO SOB, TOOK A PICTURE OF INCONTINENT DERMATITIS BILATERAL BUTTOCKS. PLACED IN THE ORDERS. WILL ENDORSE TO NEXT SHIFT.
[2019-07-07] MEDS: MIDODRINE 5 MG TAB PO SCH ×3 (06:45→17:59)
--- NOTE | 2019-07-07 07:25 | NUR ---
RECEIVED REPORT FROM LINE TESTER NURSE. PATIENT LYING DOWN IN BED SLEEPING, AROUSABLE BY VOICE. FAMILY AT BEDSIDE. NO DISTRESS NOTED. DENIES ANY PAIN. AAOX3, CALM, COOPERATIVE, SKIN COLOR APPROPRIATE TO ETHNICITY, WARM TO TOUCH. HAS MULTIPLE SKIN TEARS ON LEFT FOREARM, AND RIGHT FOREARM, HAS RLE GRUBBS AND FOOT SKIN TEAR. DRESSING, OOZING, REINFORCED AT THIS TIME. WILL CHANGE LATER. IV SITE INTACT, PATENT, AND INFUSING IVF PER MD ORDERS. SAFETY MEASURES IN PLACE, CALL LIGHT WITHIN REACH. WILL CONTINUE TO MONITOR.
[2019-07-07 07:59] LABS: CREATININE 1.8 mg/dL (0.7-1.3)
[2019-07-07 08:04] LABS: CARBON DIOXIDE 15.7 mmol/L (21-32); POTASSIUM 4.2 mmol/L (3.5-5.1)
[2019-07-07 08:07] LABS: ANION GAP 17.5 (8-16)
[2019-07-07] MEDS: DOCUSATE SODIUM 100 MG GELCAP PO SCH ×2 (09:00→21:03)
--- NOTE | 2019-07-07 09:00 | NUR ---
ASSISTED MEDICATION AID IN CLEANING AND REPOSITIONING PATIENT.
[2019-07-07 09:10] LABS: MEAN CORPUSCULAR HEMOGLOBIN 32 pg (27-31); MEAN CORPUSCULAR HGB CONC 33 g/dL (33-37); MEAN CORPUSCULAR VOLUME 96.8 fL (80-94); PLATELET COUNT (AUTO) 33 K/uL (140-450); RED BLOOD CELL COUNT(AUTO) 2.05 MIL/uL (4.20-6.10); RED CELL DISTRIBUTION WIDTH 23.5 % (11.6-13.7); WHITE BLOOD COUNT (AUTO) 10.1 K/uL (4.8-10.8)
[2019-07-07 09:22] LABS: HEMATOCRIT 19.8 % (36-52); HEMOGLOBIN 6.6 g/dL (12.0-18.0)
[2019-07-07 10:08] LABS: EOSINOPHILS % (MANUAL) 1 % (0-4); LYMPHOCYTES % (MANUAL) 8 % (20-46); MONOCYTES % (MANUAL) 10 % (5-12)
[2019-07-07] MEDS: PANTOPRAZOLE 40 MG INJ VIAL IVP SCH (10:10)
[2019-07-07] MEDS: LACTULOSE 20 GM/30 ML UDC PO SCH ×3 (10:11→17:52)
[2019-07-07] MEDS: SUCRALFATE 1 GM TAB PO SCH ×4 (10:11→21:02)
[2019-07-07] MEDS: ALBUMIN HUMAN 25% 50 ML IV SCH (10:11)
[2019-07-07] MEDS: OCTREOTIDE ACETATE 100 MCG/ML VIAL SUBQ SCH ×3 (10:12→17:52)
--- NOTE | 2019-07-07 10:13 | NUR ---
PATIENT LYING DOWN IN BED WATCHING TV. AT BEDSIDE. NO DISTRESS NOTED. SCHEDULED MEDICATIONS DUE GIVEN. COLACE NOT GIVEN DUE TO PATIENT ALREADY HAVING LOTS OF LOOSE BM D/T LACTULOSE. WILL CONTINUE TO MONITOR.
--- NOTE | 2019-07-07 12:53 | NUR ---
PATIENT SITTING IN BED TALKING WITH FAMILY MEMBERS AT BEDSIDE. SCHEDULED MEDICATIONS DUE GIVEN. WILL CONTINUE TO MONITOR.
--- NOTE | 2019-07-07 12:54 | NUR ---
MIDODRINE NOT GIVEN AT THIS TIME DUE TO INCREASED BP.
[2019-07-07] MEDS ORDERED: Z-GUARD PASTE TP SCH (13:00)
--- NOTE | 2019-07-07 16:22 | NUR ---
CONTACTED DR. KAY HAMMER'S OFFICE FOR FOLLOW UP VISIT, SPOKE TO LINA. SHE STATED THAT THE PATIENT HAS AN APPOINTMENT FOR JUL 13, 2019 AT 3 PM.
--- NOTE | 2019-07-07 18:00 | NUR ---
PATIENT LYING DOWN IN BED SLEEPING, AROSABLE BY VOICE. NO DISTRESS NOTED. SCHEDULED MEDICATIONS DUE GIVEN. WILL CONTINUE TO MONITOR.
--- NOTE | 2019-07-07 19:31 | NUR ---
GAVE REPORT TO SURVEILLANCE SENSOR OFFICER NURSE FOR CONTINUITY OF CARE. PATIENT IN STABLE CONDITION.
--- NOTE | 2019-07-07 19:32 | NUR ---
RECEIVED REPORT FROM AM SHIFT AWAKE, ALERT ORIENTED X 3. PT DUE FOR BLOOD TRANSFUSION. WITH IV LEFT HAND G 22, PATENT. DRESSING ON R LE AND BILATERAL UE INTACT, DRY. POC REVIEWED. FALL RISK. NO SOB, NO RESPIRATORY DISTRESS. BEDREST. ON FALL RISK PRECAUTION; WILL MONITOR PT
--- NOTE | 2019-07-07 20:00 | NUR ---
STARTED A NEW LINE @ THE RIGHT HAND G 22 IN PREPARATION FOR BLOOD TRANSFUSION, PATENT AND INTACT. PRESENT IV STILL INTACT.
--- NOTE | 2019-07-07 20:05 | NUR ---
IN THE PYXIS TOOK OUT D5% IV 250 ML WILL DISCARD, OPENED, WASTED
[2019-07-07] MEDS: Z-GUARD PASTE TP SCH (21:03)
[2019-07-08] MEDS: SODIUM BICARBONATE 650 MG TAB PO SCH ×4 (00:23→21:38)
--- NOTE | 2019-07-08 00:24 | NUR ---
CALLED THE BLOOD BANK PER BLOOD BANK PERSONNEL CROSSMATCHING IN PROGRESS
--- NOTE | 2019-07-08 01:30 | NUR ---
BREATHING TX GIVEN BY RT Addendum: 07/08/19 at 0347 by Mirtha Daly RN WRONG PT
--- NOTE | 2019-07-08 03:00 | NUR ---
PT IN STABLE CONDITION, TRYING TO GET SOME SLEEP. NO SOB; NO RESP DISTRESS
[2019-07-08 04:00] VITALS: BP 108/61
[2019-07-08] MEDS: MIDODRINE 5 MG TAB PO SCH ×3 (06:15→18:01)
--- NOTE | 2019-07-08 06:17 | NUR ---
PT AWAKE, ALERT ORIENTED X 3, BEDREST, W/ ONGOING BLOOD TRANFUSION PRBC W/ ANTIBODIES , INFUSING WELL ON R HAND G 22, PATENT AND INTACT. HCT AND HEMOGLOBIN FOR MONITORING. WILL ENDORSE TO NEXT SHIFT
--- NOTE | 2019-07-08 07:30 | NUR ---
RECEIVED BEDSIDE REPORT FROM RUI MENDOZA. PT STABLE, AWAKE, ALERT AND ORIENTED X3. NO SIGNS OF DISTRESS NOTED. DENIES PAIN OR SOB. NO REDNESS, SWELLING, OR INFLAMMATION NOTED ON IV SITE. BLOOD TRANSFUSION CURRENTLY RUNNING, NO REACTION NOTED. CALL MEADOWS WITHIN REACH. BED IN LOWEST POSITION, BED ALARM ON. SAFETY MEASURES IN PLACE. PLAN OF CARE REVIEWED.
[2019-07-08 08:00] VITALS: BP 118/68
[2019-07-08] MEDS: LACTULOSE 20 GM/30 ML UDC PO SCH ×3 (09:30→18:00)
[2019-07-08] MEDS: SUCRALFATE 1 GM TAB PO SCH ×4 (09:30→21:38)
[2019-07-08] MEDS: DOCUSATE SODIUM 100 MG GELCAP PO SCH ×2 (09:31→21:37)
[2019-07-08] MEDS: PANTOPRAZOLE 40 MG INJ VIAL IVP SCH (09:31)
[2019-07-08] MEDS: Z-GUARD PASTE TP SCH ×2 (09:32→21:38)
[2019-07-08] MEDS: OCTREOTIDE ACETATE 100 MCG/ML VIAL SUBQ SCH ×3 (09:32→18:00)
--- NOTE | 2019-07-08 09:43 | NUR ---
ADMINISTERED SCHEDULED MEDICATIONS, PT TOLERATED WELL. NO OTHER NEEDS AT THIS TIME. FAMILY AT THE BEDSIDE.
--- NOTE | 2019-07-08 10:30 | NUR ---
VITAL SIGNS TAKEN FOR PRE- BLOOD TRANSFUSION. PT STABLE.
--- NOTE | 2019-07-08 10:45 | NUR ---
BLOOD TRANSFUSION STARTED. VERIFIED BLOOD WITH RUI OCAMPO. FAMILY AT THE BEDSIDE. WILL CONTINUE TO MONITOR.
--- NOTE | 2019-07-08 11:00 | NUR ---
VITAL SIGNS TAKEN, PT STABLE. NO BLOOD TRANSFUSION REACTION NOTED. FAMILY AT THE BEDSIDE. NO OTHER NEEDS AT THIS TIME. WILL CONTINUE TO MONITOR.
--- NOTE | 2019-07-08 11:28 | NUR ---
SPOKE WITH DR ALARCON REGARDING PT'S PLAN OF CARE. RECEIVED ORDER FROM DR ALARCON TO OBTAIN CONSENT FOR EGD AND PARACENTESIS TOMORROW.
[2019-07-08 12:00] VITALS: BP 115/58
--- NOTE | 2019-07-08 12:15 | NUR ---
VITAL SIGNS TAKEN, PT STABLE. NO SIGNS OF BLOOD TRANSFUSION REACTION NOTED. WILL CONTINUE TO MONITOR.
--- NOTE | 2019-07-08 13:04 | NUR ---
ADMINISTERED SCHEDULED MEDICATIONS, PT TOLERATED WELL. PT SIGNED CONSENT FOR EGD AND PARACENTESIS TOMORROW 07/09/[address] CA'S ORDER.
--- NOTE | 2019-07-08 14:00 | NUR ---
WOUND ASSESSMENT AND WOUND CARE PROVIDED. DRESSING CHANGED. PT TOLERATED WELL.
--- NOTE | 2019-07-08 14:20 | NUR ---
VITAL SIGNS TAKEN FOR POST BLOOD-TRANSFUSION. PT STABLE, NO SIGNS OF DISTRESS NOTED. WILL CONTINUE TO MONITOR.
--- NOTE | 2019-07-08 15:07 | NUR ---
ORDER FOR LTACH EVAL SENT TO [facility]. RHYS SALTER AT [facility], CONFIRMED THAT HE RECEIVED IT. WILL FOLLOW UP.
[2019-07-08 16:00] VITALS: BP 106/54
[2019-07-08 16:31] LABS: BASOPHILS % (AUTO) 0.2 % (0.0-2.0); EOSINOPHILS # (AUTO) 0.2 K/uL (0-0.4); EOSINOPHILS % (AUTO) 1.8 % (0.0-4.0); HEMATOCRIT 21.2 % (36-52); LYMPHOCYTES # (AUTO) 0.5 K/uL (2.0-11.5); LYMPHOCYTES % (AUTO) 5.5 % (20.5-51.1); MEAN CORPUSCULAR HEMOGLOBIN 33 pg (27-31); MEAN CORPUSCULAR HGB CONC 33 g/dL (33-37); MEAN CORPUSCULAR VOLUME 99.1 fL (80-94); MONOCYTES % (AUTO) 10.6 % (1.7-9.3); NEUTROPHILS # (AUTO) 7.7 K/uL (1.8-7.7); NEUTROPHILS % (AUTO) 81.9 % (42.2-75.2); PLATELET COUNT (AUTO) 35 K/uL (140-450); RED BLOOD CELL COUNT(AUTO) 2.14 MIL/uL (4.20-6.10); RED CELL DISTRIBUTION WIDTH 22.8 % (11.6-13.7); WHITE BLOOD COUNT (AUTO) 9.4 K/uL (4.8-10.8)
--- NOTE | 2019-07-08 16:55 | NUR ---
PAGED DR NICHOLSON.
[2019-07-08 16:59] LABS: ANION GAP 15.7 (8-16); CARBON DIOXIDE 17.3 mmol/L (21-32); CREATININE 1.5 mg/dL (0.7-1.3)
--- NOTE | 2019-07-08 17:22 | NUR ---
MADE DR NICHOLSON AWARE OF PT'S HGB 7.0 AND HCT 21.2. RECEIVED TELEPHONE ORDER FROM DR NICHOLSON FOR 2 UNITS PRBC. WILL PUT IN ORDER.
--- NOTE | 2019-07-08 18:00 | NUR ---
BP RECHECKED, 111/78, HR 64. ADMINISTERED ALL SCHEDULED MEDICATIONS, PT TOLERATED WELL. NO OTHER NEEDS AT THIS TIME. FAMILY AT THE BEDSIDE.
--- NOTE | 2019-07-08 18:35 | NUR ---
DR MULLINS AT THE BEDSIDE. PER DR CA, PT DOES NOT NEED PARACENTESIS.
--- NOTE | 2019-07-08 19:10 | NUR ---
ENDORSED PT TO RUI KENYON FOR CONTINUITY OF CARE. PT STABLE.
--- NOTE | 2019-07-08 19:11 | NUR ---
RECEIVED BEDSIDE REPORT FROM DAY SHIFT NURSE. PT AAO X3, SPOUSE AT BEDSIDE. NO SIGNS OF DISTRESS NOTED. DENIES PAIN OR SOB. IV SITE ON RIGHT HAND, 22G, INTACT, PATENT, AND ASYMPTOMATIC, SL. BOARD UPDATED AND POC REVIEWED AND DISCUSSED WITH PT. PT VERBALIZED UNDERSTANDING. CALL MEADOWS WITHIN REACH. BED IN LOWEST POSITION, BED ALARM ON. SAFETY MEASURES IN PLACE.
--- NOTE | 2019-07-08 19:50 | NUR ---
LAB CALLED, BLOOD IS READY FOR TRANSFUSION. VS CHECKED, 98.5, 63, 18, 113/60, 0/10, 99% Addendum: 07/08/19 at 2341 by Kathe Lambert RN BLOOD PICKED UP FROM LAB.
[2019-07-08 20:00] VITALS: BP 113/60
--- NOTE | 2019-07-08 20:00 | NUR ---
BLOOD VERIFIED WITH CHARGE NURSE, DEBORAH. STARTED BLOOD TRANSFUSION. PT TOLERATED WELL. WILL CONTINUE TO MONITOR.
--- NOTE | 2019-07-08 20:15 | NUR ---
VS CHECKED, 98.9, 65, 18, 115/56, 0/10, 99%. BLOOD TRANSFUSION IS RUNNING. PT TOLERATED WELL.
--- NOTE | 2019-07-08 20:30 | NUR ---
VS CHECKED, 98.8, 60, 18, 126/60, 0/10, 98%. BLOOD TRANSFUSION IS RUNNING. PT TOLERATED WELL.
--- NOTE | 2019-07-08 21:30 | NUR ---
PT CHILL, AND PULSE RATE WENT TO 130, BP WENT TO 150/71, R/R 24. CALLED [facility] TO REPORT DRMikael BUT CALL CENTER IS ON BUSY.
--- NOTE | 2019-07-08 21:38 | NUR ---
GIVEN SCHEDULED MEDS. PT TOLERATED WELL. WILL CONTINUE TO MONITOR.
--- NOTE | 2019-07-08 21:45 | NUR ---
KEEP CALLING TO [facility] PAGE CALL CENTER BUT STILL ON BUSY SIGNAL. USED ALL OTHER PHONE IN THE UNIT TO CALL, SAME BUSY SIGNAL. REPORTED CHARGE NURSE DEBORAH AND SALVAGE WORKER PAULINE.
--- NOTE | 2019-07-08 22:05 | NUR ---
HEAD PACKAGER, PAULINE AND CHARGE NURSE, DEBORAH PROVIDED ANOTHER PHONE NUMBER TO [facility]. PAGED CERTIFIED MARINE MECHANIC DR. NICHOLSON.
--- NOTE | 2019-07-08 22:10 | NUR ---
REPORTED DR. NICHOLSON FOR ADVERSE REACTION AND DR. NICHOLSON CALLED AND ORDERED 650MG TYLENOL PO 1TIME, 25MG BENADRYL IV PUSH 1TIME, AND RESTART BLOOD TRANSFUSION, AND THEN TRANSFER PT TO ICU. LARSB.
[2019-07-08] MEDS ORDERED: ACETAMINOPHEN EXTRA STRENGTH 500 MG TAB PO ONE (22:25)
[2019-07-08] MEDS ORDERED: diphenhydrAMINE 50 MG/ML VIAL IVP ONE (22:25)
--- NOTE | 2019-07-08 22:30 | NUR ---
GIVEN TYLENOL 650MG PO AND BENADRYL 25MG IV PUSH DR. NICHOLSON ORDERED. PT TOLERATED WELL. Addendum: 07/09/19 at 0050 by Kathe Lambert RN RESTART BLOOD TRANSFUSION AND CALL ICU FOR TRANSFER DR. NICHOLSON'S ORDER.
--- NOTE | 2019-07-08 22:30 | NUR ---
GIVEN TYLENOL 650MG PO AND BENADRYL 25MG IV PUSH DR. BHARAT CARLISLE. PT TOLERATED WELL. Addendum: 07/08/19 at 2337 by Kathe Lambert RN PICKED THE BLOOD UP FROM LAB. Addendum: 07/08/19 at 2338 by Kathe Lambert RN PLEASE DISCARD. WRONG COMMENT ADDED.
[2019-07-08] MEDS ORDERED: ACETAMINOPHEN 325 MG TAB ONE (22:34)
[2019-07-08] MEDS ORDERED: diphenhydrAMINE 50 MG/ML VIAL ONE (22:34)
--- NOTE | 2019-07-08 23:00 | NUR ---
ICU CHARGE NURSE CAME AND CHECK PT'S CONDITION, INCLUDING VS CHECK. NO FEVER NOTED AT THIS TIME. WILL CONTINUE TO MONITOR.
--- NOTE | 2019-07-08 23:55 | NUR ---
BLOOD TRANSFUSION DONE. VS 98.7, 0/10, 130/80, 20, 132 PULSE. TRANSFERRED PT TO ICU. ENDORSED PT TO ICU NURSE. PT AWAKE AND C/O COLD. OTHER THAN THAT, PT DENIES PAIN OR DISCOMFORT.
[2019-07-09] VITALS (15 sets, daily range): BP systolic 72–139; BP diastolic 39–89
--- NOTE | 2019-07-09 00:05 | NUR ---
RECEIVED PATIENT FROM TELEMETRY 107B. DX SEVERE ANEMIA AND GENIE. PATIENT WAS RECEIVING BLOOD TRANSFUSION PRIOR TO HAVING A FEVER AND BECAME DIAPHORETIC. AOX3, FORGETFUL AT TIMES. REINFORCEMENT IS NEEDED. BREATH SOUNDS ARE CLEAR IN THE BILATERAL UPPER LOBES AND BOWEL SOUNDS NOTED. PATIENT ON NASAL CANNULA AT 5LPM. TACHYPNEIC. ST ON MONITOR. AFEBRILE WITH ORAL TEMPERATURE OF 98.7. BP 139/89 WITH MAP OF 103. #22 IN THE RIGHT WRIST AND #22 IN THE LEFT HAND. GENERALIZED JAUNDICE NOTED. PRESSURE ULCER ON BILATERAL BUTTOCKS, SKIN TEARS ON THE LFA AND RLE. THERE IS EXCORIATION NOTED ON THE LOWER ABDOMEN. ORIENTED PATIENT TO ICU CARE ENVIRONMENT. NEEDS ATTENDED. CONTINUE TO MONITOR PATIENT.
[2019-07-09] MEDS ORDERED: FUROSEMIDE 100 MG/10 ML VIAL IV ONE (00:45)
--- NOTE | 2019-07-09 00:45 | NUR ---
PHONE CALL TO DR NICHOLSON; MADE AWARE PT HAS SOB AND HEART RATE 130'S; ORDERED LASIX 60MG IVP X1 NOW AND CXR.
--- NOTE | 2019-07-09 00:50 | NUR ---
FR16 FRENCH CATHETER INSERTED. MINIMAL AMOUNT OF MYLES COLOR URINE NOTED.
--- NOTE | 2019-07-09 00:56 | NUR ---
LASIX 60MG IVP ADMINISTERED.
[2019-07-09] MEDS ORDERED: FUROSEMIDE 20 MG/2 ML VIAL IVP ONE (01:03)
--- NOTE | 2019-07-09 01:11 | NUR ---
TUBE CLOSING MACHINE OPERATOR AT BEDSIDE FOR STAT CXR.
--- NOTE | 2019-07-09 01:45 | NUR ---
FOURTH UNIT OF PRBC INITIATED.
--- NOTE | 2019-07-09 01:50 | NUR ---
TITRATED OXYGEN TO 2LPM VIA NASAL CANNULA, PULSE OX SAT 100%. RN NOTIFIED. WORK OF BREATHING HAS IMPROVED. WILL CONTINUE TO MONITOR.
[2019-07-09] MEDS ORDERED: diphenhydrAMINE 50 MG/ML VIAL ONE (06:59)
[2019-07-09] MEDS ORDERED: MIDAZOLAM 2 MG/2 ML VIAL ONE (06:59)
[2019-07-09] MEDS ORDERED: fentaNYL 0.05 MG/ML VIAL ONE (06:59)
[2019-07-09] MEDS: MIDODRINE 5 MG TAB PO SCH ×3 (07:00→18:05)
--- NOTE | 2019-07-09 07:04 | NUR ---
DR. JONES AND TEAM AT BEDSIDE FOR EGD.
[2019-07-09] MEDS ORDERED: MIDAZOLAM 2 MG/2 ML VIAL IVP ONE (07:11)
[2019-07-09 07:13] LABS: HEMATOCRIT 24.6 % (36-52); HEMOGLOBIN 8.1 g/dL (12.0-18.0); MEAN CORPUSCULAR HEMOGLOBIN 32 pg (27-31); MEAN CORPUSCULAR HGB CONC 33 g/dL (33-37); MEAN CORPUSCULAR VOLUME 97.5 fL (80-94); PLATELET COUNT (AUTO) 32 K/uL (140-450); RED BLOOD CELL COUNT(AUTO) 2.52 MIL/uL (4.20-6.10); RED CELL DISTRIBUTION WIDTH 20.6 % (11.6-13.7); WHITE BLOOD COUNT (AUTO) 17.8 K/uL (4.8-10.8)
[2019-07-09] MEDS ORDERED: fentaNYL 0.05 MG/ML VIAL IVP ONE (07:14)
--- NOTE | 2019-07-09 07:45 | NUR ---
ENDORSED CONTINUITY OF CARE TO CHELI FABIAN.
--- NOTE | 2019-07-09 08:00 | NUR ---
RECEIVED PATIENT ON NASSAL CANNULA O2 4L/MIN., BREATHIN IN THE 40s so@ 92% AND UP, OPENS EYES TO VOICE, ABLE TO STATE NAME AND DATE OF AND MAKE NEEDS KNOWN, HEAD OF BED KEPT 30 DEGREES UP, SINUS RHYTHM ON MONITOR, ASCITES NOTED, FRENCH CATHETER WITH SCANT MYLES URINE NOTED IN THE BAG, SKIN PEEL IN LEFT AND RIGH FOREARM, RIGHT LEG/ANKLE ALL WITH CLEAN DRY DRESSIN, GAUGE 20 PERIPHERAL LINE AT LEFT HAND NAND GAUGE 22 AT RIGHT HAND. CALL MEADOWS WITHIN REACH
[2019-07-09 08:14] LABS: LYMPHOCYTES % (MANUAL) 2 % (20-46); MONOCYTES % (MANUAL) 5 % (5-12)
--- NOTE | 2019-07-09 08:44 | NUR ---
PAGED DR. NICHOLSON TO RELAY ABG RESULT
--- NOTE | 2019-07-09 08:57 | NUR ---
DR. NICHOLSON CALLED BACK. ORDERS RECEIVED Addendum: 07/09/19 at 1017 by Zonia Freitas RN [phone] HOURS- DR. NICHOLSON INFORMED OF PATIENT'S ABG, URINE OUTPUT, WBC AND PLATELET
[2019-07-09] MEDS: LACTULOSE 20 GM/30 ML UDC PO SCH ×3 (09:00→16:08)
[2019-07-09] MEDS: SODIUM BICARBONATE 650 MG TAB PO SCH (09:00)
[2019-07-09] MEDS: DOCUSATE SODIUM 100 MG GELCAP PO SCH ×2 (09:00→20:32)
[2019-07-09] MEDS ORDERED: SODIUM BICARBONATE 8.4% PFS 50 MEQ/50 ML SYR IVP SCH (09:15)
[2019-07-09] MEDS: SUCRALFATE 1 GM TAB PO SCH ×4 (09:34→20:32)
[2019-07-09] MEDS: OCTREOTIDE ACETATE 100 MCG/ML VIAL SUBQ SCH ×3 (09:35→16:08)
[2019-07-09] MEDS: Z-GUARD PASTE TP SCH ×2 (09:35→20:36)
[2019-07-09] MEDS: LEVOFLOXACIN 250 MG/D5 PREMIX 50 ML IV SCH (09:41)
--- NOTE | 2019-07-09 10:20 | NUR ---
PT PLACED ON BIPAP PER DR NICHOLSON WITH SETTINGS CHARTED BREATH SOUNDS PRESENT BILAT DIMINISHED PT NERY BIPAP AT THIS TIME WILL CONTINUE TO MONITOR
--- NOTE | 2019-07-09 11:19 | NUR ---
DR. SANTACRUZ AT BEDSIDE. INFORMED OF PATIENT'S URINE OUTPUT
--- NOTE | 2019-07-09 11:40 | NUR ---
DR. SANTACRUZ SPOKE TO PATIENT'S DAUGHTER OVER THE PHONE REGARDING PATIENT'S POOR PROGNOSIS
[2019-07-09] MEDS ORDERED: ALBUMIN HUMAN 25% 100 ML IV SCH (12:00)
--- NOTE | 2019-07-09 12:20 | NUR ---
DR. BHARAT FORTUNE FOR REPEAT ABG RESULT
--- NOTE | 2019-07-09 12:31 | NUR ---
PATIENT'S AT BEDSIDE AND SPOKE TO DR. SANTACRUZ ABOUT HIS PROGNOSIS. PATIENT AND HIS SIGNED MODIFIED DNR FORM AND PLACED IN THE CHART
[2019-07-09] MEDS ORDERED: FUROSEMIDE 40 MG/4 ML VIAL IVP SCH (13:00)
--- NOTE | 2019-07-09 13:16 | NUR ---
DR. NICHOLSON CALLED BACK. MADE AWARE OF ABG RESULT AND PATIENT'S MODIFIED DNR STATUS
[2019-07-09] MEDS: SODIUM BICARBONATE 8.4% 150 MEQ in DEXTROSE 5% 1,000 ML IV SCH (14:04)
[2019-07-09 15:10] LABS: ANION GAP 24.2 (8-16); CREATININE 2.5 mg/dL (0.7-1.3); POTASSIUM 4.2 mmol/L (3.5-5.1)
--- NOTE | 2019-07-09 15:32 | NUR ---
PAGED DR. SANTACRUZ TO INFORM OF PATIENT'S BLOOD PRESSURE, BLOOD SUGAR
--- NOTE | 2019-07-09 15:48 | NUR ---
DR. SANTACRUZ CALLED BACK. ORDERS RECEIVED FROM DR. SANTACRUZ
[2019-07-09] MEDS ORDERED: DEXTROSE 50% 50 ML SYR IVP SCH (16:00)
--- NOTE | 2019-07-09 16:00 | NUR ---
DR. NICHOLSON AT BEDSIDE AND MADE AWARE OF BP TREND
--- NOTE | 2019-07-09 19:17 | NUR ---
REPORT GIVEN TO TELEMETRY NIGHT RN. PATIENT WILL BE TRANSPORTED BY NIGHT SALES REPRESENTATIVE SALES MANAGER
--- NOTE | 2019-07-09 19:30 | NUR ---
PATIENT TAKEN TO [facility] ROOM 124 A
--- NOTE | 2019-07-09 19:40 | NUR ---
RECEIVED PATIENT. HAD RECEIVED TELEPHONE REPORT. PT IS AAOX4 ON NC 5L O2 WILL BE ON BIPAP FIO2 25%. LUNG SOUNDS ARE CLEAR. PT SKIN IS YELLOW EYE SCLERA YELLOW HAS SKIN TEARS ON BLE PT WITH FRENCH CATH DRAINING DARK YELLOW URINE APPROX 10CC DR IS AWARE. ON TELE MONITOR VS: 85/53 HR 80 97.2 100% ON BIPAP. RR 19 SISTER IS AT BEDSIDE. PT HAS POOR PROGNOSIS ON MOD CODE ONLY BIPAP. FAMILY REQUESTING SINGLE ROOM SO FAMILY CAN COME AND VISIT WILL SPEAK WITH CHARGE NURSE. PLAN OF CARE DISCUSSED WITH PT AND FAMILY CALL LIGHT IS WITHIN REACH. WILL ROUND FREQUENTLY.
--- NOTE | 2019-07-09 20:12 | NUR ---
PATIENT TRANSFERRED FROM ICU TO [facility] WITHOUT INCIDENT. PLACED ON BIPAP AND CONTINUOUS PULSE OX MONITOR. BIPAP CHECK DONE. BIPAP ALARMS ON AND AUDIBLE. SKIN PROTECTIVE GEL IN PLACE. TOLERATING BIPAP AT THIS TIME. NO ACUTE RESPIRATORY DISTRESS NOTED AT THIS TIME. WILL CONTINUE TO MONITOR.
[2019-07-09] MEDS: ALBUMIN HUMAN 25% 50 ML IV SCH ×2 (20:36→23:39)
--- NOTE | 2019-07-09 20:39 | NUR ---
KACEY MEDICATIONS WERE GIVEN. PT TOLERATED WELL. ALL NEEDS MET AT THIS TIME. DAUGHTER AND AND SISTER ARE AT BEDSIDE. WILL CONTINUE TO MONITOR.
--- NOTE | 2019-07-09 21:00 | NUR ---
PATIENT TRANSFERRED TO ROOM 120B FAMILY AT BEDSIDE. WILL CONTINUE TO MONITOR.
--- NOTE | 2019-07-09 21:10 | NUR ---
TRANSFERRED PATIENT TO ROOM 120 B WITHOUT INCIDENT. BIPAP REPLACED. MASK CHANGED TO SIZE MEDIUM. BIPAP CHECK DONE, ALARMS ON AND AUDIBLE. AMBU BAG AT [facility]. CONTINUOUS PULSE OX ON AND FUNCTIONING. NO ACUTE RESPIRATORY DISTRESS NOTED. FAMILY AT BEDSIDE. WILL CONTINUE TO MONITOR.
--- NOTE | 2019-07-09 21:30 | NUR ---
CHECKED PT BLOOD SUGAR PER REQUEST BG 69 OFFERED JUICE AND MILK PT ONLY TOOK A FEW SIPS WILL CONTINUE TO MONITOR.
--- NOTE | 2019-07-09 22:30 | NUR ---
FAMILY IS AT BEDSIDE. FAMILY MEMBERS COMING INTO ROOM IN GROUPS OF 3-4 TO SEE PT. STATES HAS A BIG FAMILY THEY FLEW OUT TO SEE MR EDWARD. PT REMAINS ON BIPAP. NO S/S OF DISTRESS. CALL LIGHT IS WITHIN REACH. WILL CONTINUE TO MONITOR.
[2019-07-10] VITALS: BP 80/43
--- NOTE | 2019-07-10 | NUR ---
PATIENT REMAINS WITH LOW B/P 80/43 HR 70 ON BIPAP. FAMILY IS AT BEDSIDE PT AWAKE. ALBUMIN NOW INFUSING PER ORDER. WILL CONTINUE TO MONITOR.
--- NOTE | 2019-07-10 01:45 | NUR ---
BIPAP CHECK DONE. BIPAP ALARMS ON AND AUDIBLE. NO ACUTE RESPIRATORY DISTRESS NOTED AT THIS TIME. FAMILY AT BEDSIDE. WILL CONTINUE TO MONITOR.
--- NOTE | 2019-07-10 02:00 | NUR ---
PATIENT IS SLEEPING COMFORTABLY IN BED. CHEST RISE AND FALL. ON BIPAP SAT 99%. IS AT BEDSIDE. SAFETY MEASURES ARE IN PLACE. CALL LIGHT IS WITHIN REACH. WILL CONTINUE TO MONITOR.
[2019-07-10 04:00] VITALS: BP 80/40
--- NOTE | 2019-07-10 04:00 | NUR ---
PATIENTS B/P REMAINS IN LOW 80S. IV ALBUMIN INFUSING PER ORDERS. PATIENT REMAINS ON BIPAP SAT 100%. DENIES PAIN. IS AT BEDSIDE. CALL LIGHT IS WITHIN REACH. WILL CONTINUE TO MONITOR.
[2019-07-10] MEDS: ALBUMIN HUMAN 25% 50 ML IV SCH ×2 (04:25→08:43)
[2019-07-10] MEDS: MIDODRINE 5 MG TAB PO SCH ×3 (06:21→18:06)
--- NOTE | 2019-07-10 06:21 | NUR ---
KACEY MEDICATION GIVEN PER ORDERS. PT ON BIPAP SAT 100%. GETTING BLOOD DRAWN. STATES WILL BE LEAVING AND WILL BE BACK AROUND [phone]. CALL LIGHT IS WITHIN REACH. WILL CONTINUE TO MONITOR.
--- NOTE | 2019-07-10 07:25 | NUR ---
GAVE BEDSIDE REPORT TO DAY RN. PT ENDORSED IN STABLE CONDITION.
--- NOTE | 2019-07-10 07:25 | NUR ---
RECEIVED REPORT FROM BOX LINING MACHINE OPERATOR NURSE. PATIENT WAS SLEEPING QUIETLY IN BED. NO S/S OF RESPIRATORY DISTRESS. PT IS ON BIPAP AND SATTING 100%. WILL CONTINUE TO MONITOR.
--- NOTE | 2019-07-10 07:55 | NUR ---
RECEVIED PT ON BIPAP 11/05 R 20 FIO2 25%. PT TOLERATING BIPAP WELL AT THIS TIME. BIPAP IS PLUGGED INTO RED OUTLET WITH ALARMS ON AND FUNCTIONING. PROTECTA GEL IS PLACED UNDER MASK FOR SKIN PROTECTION. WILL CONTINUE TO MONITOR.
[2019-07-10 08:00] VITALS: BP 73/42
[2019-07-10 08:19] LABS: HEMATOCRIT 23.5 % (36-52); MEAN CORPUSCULAR HEMOGLOBIN 33 pg (27-31); MEAN CORPUSCULAR HGB CONC 32 g/dL (33-37); MEAN CORPUSCULAR VOLUME 101.9 fL (80-94); RED BLOOD CELL COUNT(AUTO) 2.31 MIL/uL (4.20-6.10); RED CELL DISTRIBUTION WIDTH 23.7 % (11.6-13.7); WHITE BLOOD COUNT (AUTO) 23.3 K/uL (4.8-10.8)
[2019-07-10] MEDS: LACTULOSE 20 GM/30 ML UDC PO SCH ×3 (08:43→18:01)
[2019-07-10] MEDS: DOCUSATE SODIUM 100 MG GELCAP PO SCH ×2 (08:43→20:01)
[2019-07-10] MEDS: SUCRALFATE 1 GM TAB PO SCH ×4 (08:43→20:01)
[2019-07-10] MEDS: OCTREOTIDE ACETATE 100 MCG/ML VIAL SUBQ SCH ×3 (08:44→18:00)
[2019-07-10] MEDS: Z-GUARD PASTE TP SCH ×2 (09:00→20:02)
--- NOTE | 2019-07-10 09:05 | NUR ---
ADMINISTERED MORNING MEDICATION TO PATIENT. PATIENT TOLERATED WELL. PATIENT WANTED A BREAK FROM BIPAP. NO S/S OF RESPIRATORY DISTRESS FROM PATIENT WHEN OFF BIPAP. INSTRUCTED PATIENT TO PRESS THE CALL LIGHT FOR ANY SIGNS OF RESPIRATORY DISTRESS. FAMILY IS AT BEDSIDE. WILL CONTINUE TO MONITOR.
[2019-07-10 09:08] LABS: ALBUMIN 2.8 g/dL (3.4-5.0); ANION GAP 18.6 (8-16); CREATININE 2.9 mg/dL (0.7-1.3); MAGNESIUM 2.5 mg/dL (1.8-2.4); PHOSPHORUS 4.7 mg/dL (2.5-4.9); POTASSIUM 4.6 mmol/L (3.5-5.1)
[2019-07-10 09:12] LABS: HEMOGLOBIN 7.6 g/dL (12.0-18.0); PLATELET COUNT (AUTO) 29 K/uL (140-450)
[2019-07-10 09:23] LABS: LYMPHOCYTES % (MANUAL) 5 % (20-46); MONOCYTES % (MANUAL) 3 % (5-12)
[2019-07-10 09:30] LABS: TOTAL BILIRUBIN 27.2 mg/dL (0.0-1.0)
[2019-07-10] MEDS: LEVOFLOXACIN 250 MG/D5 PREMIX 50 ML IV SCH (10:08)
--- NOTE | 2019-07-10 10:20 | NUR ---
PT OFF OF BIPAP NOT SOB AT THIS TIME, SITTING UP IN BED WATCHING TV. FAMILY IS BEDSIDE. SPO2 97%. WILL CONTINUE TO MONITOR.
--- NOTE | 2019-07-10 11:30 | NUR ---
CHANGED PATIENTS SHEETS AND CHUX WITH THE ASSISTANCE OF RUI GARCIA. PATIENT HAD ONE LARGE BOWEL MOVEMENT. APPLIED HYDROGUARD TO SACRAL/COCCYX AREA. PATIENT TOLERATED WELL ON ROOM AIR WITH O2 AT 100% CHANGED PATIENTS GOWN AND BROUGHT HIM A NEW BLANKET.
[2019-07-10 12:00] VITALS: BP 94/46
[2019-07-10] MEDS: SODIUM BICARBONATE 8.4% 150 MEQ in DEXTROSE 5% 1,000 ML IV SCH (13:00)
--- NOTE | 2019-07-10 14:00 | NUR ---
PATIENT IS RESTING QUIETLY IN BED. NO S/S OF RESPIRATORY DISTRESS. PATIENT IS ON ROOM AIR SATTING AT 100% FAMILY IS AT BEDSIDE.
--- NOTE | 2019-07-10 15:12 | NUR ---
Consultant Nurse Note: I called weekend International Freight Forwarder Pilar from [facility] , no answer, left message. I called Rell from [facility] [place] , no answer, left message. I faxed inquiry to Rell, fax .
[2019-07-10 16:00] VITALS: BP 87/39
--- NOTE | 2019-07-10 16:00 | NUR ---
CHANGED DRESSING TO RIGHT AND LEFT ARM SKIN TEARS. CLEANSED SKIN TEAR SITE WITH NORMAL SALINE AND PATTED DRY WITH GAUZE. VERSATILE WAS APPLIED TO SKIN TEAR PRIOR TO GAUZE AND/OR BANDAGING. PATIENT TOLERATED WELL. PATIENT RESTING QUIETLY IN BED.
--- NOTE | 2019-07-10 16:23 | NUR ---
Clay Machine Operator Note: I received a voicemail message from Rell at [facility] , he stated he received inquiry that I faxed to him and will begin to evaluate patient today.
--- NOTE | 2019-07-10 18:29 | NUR ---
PATIENT WAS CLEANED AND NITISH CARE WAS PROVIDED FOR ANOTHER LOOSE BM X1. PATIENTS SOILED SHEETS AND CHUX WERE CHANGED. BED IS AT LOWEST POSITION, BOTH SIDE RAILS UP.
--- NOTE | 2019-07-10 19:05 | NUR ---
ENDORSED PATIENT TO LONG HAUL TRUCK DRIVER NURSE. PT STABLE UPON CHANGE OF SHIFT
--- NOTE | 2019-07-10 19:06 | NUR ---
RECEIVED BEDSIDE REPORT FROM DAY SHIFT NURSE JOSE/MK RN, PT STABLE, NO DISTRESS NOTED, IV TO L WRIST 20G, PATENT, INTACT, INFUSING WELL, PT ON ROOM AIR, SATURATION 100%, NO DISTRESS NOTED, NO SOB, FRENCH CATH IN PLACE DRAINING DARK MYLES URINE. INITIAL ASSESSMENT DONE, ALL SAFETY PRECAUTION MET, CALL LIGHT WITHIN REACH, WILL CONTINUE TO MONITOR.
[2019-07-10 20:00] VITALS: BP 99/57
--- NOTE | 2019-07-10 22:26 | NUR ---
PT HAD A PERIOD OF CONFUSION, STATED HE WAS DREAMING, PT PULLED IV ON THE L WRIST, CATH INTACT, PT STABLE, NO DISTRESS NOTED, WILL PUT IN NEW IV, CHANGED AND CLEANED PT, PT STATED TO TAKE OFF BIPAP, BIPAP TAKEN OFF RT NOTIFIED, PT STABLE ON ROOM AIR. CALL LIGHT WITHIN REACH, WILL CONTINUE TO MONITOR.
[2019-07-11] VITALS: BP 106/55
[2019-07-11] MEDS: ALBUMIN HUMAN 25% 100 ML IV SCH ×4 (00:26→18:15)
--- NOTE | 2019-07-11 00:26 | NUR ---
DUE MEDICATION ADMINISTERED, PT TOLERATED WELL, NO DISTRESS NOTED, CALL LIGHT WITHIN REACH, WILL CONTINUE TO MONITOR.
--- NOTE | 2019-07-11 03:55 | NUR ---
PT RESTING, NO DISTRESS NOTED, V/S WITHIN PT BASELINE, CALL LIGHT WITHIN REACH,W ILL CONTINUE TO MONITOR.
[2019-07-11 04:00] VITALS: BP 95/61
[2019-07-11] MEDS: MIDODRINE 5 MG TAB PO SCH ×3 (06:15→18:16)
--- NOTE | 2019-07-11 06:26 | NUR ---
DUE MEDICATION ADMINISTERED, PT TOLERATED WELL, NO DISTRESS NOTED, CALL LIGHT WITHIN REACH, WILL CONTINUE TO MONITOR.
--- NOTE | 2019-07-11 06:56 | NUR ---
PT RESTING ON BED, NO DISTRESS NOTED, BIPAP ON, NO SOB, ALL NEEDS MET, CALL LIGHT WITHIN REACH, WILL ENDORSE TO DAY SHIFT NURSE.
--- NOTE | 2019-07-11 07:25 | NUR ---
RECEIVED REPORT FROM FOLDER AND NOTCHER NURSE AT BEDSIDE FOR CONTINUITY OF CARE. PATIENT RESTING IN BED WITH EYES CLOSED, AOX4, CZECH SPEAKING, CURRENT ON BIBAP. NO S/S OF RESPIRATORY DISTRESS WITH O2 SATURATION OF 100%. IV ON R HAND 22 G, INFUSING IVF WELL. UPDATED BOARD. SAFETY PRECAUTIONS IN PLACE, CALL LIGHT WITHIN REACH, WILL CONTINUE TO MONITOR.
--- NOTE | 2019-07-11 07:44 | NUR ---
PT OFF OF THE BIPAP AT THIS TIME. PT STATES NO SOB. SPO2 ON ROOM AIR 99%. WILL CONTINUE TO MONITOR. NURSE IS BEDSIDE.
[2019-07-11 08:00] VITALS: BP 90/58
[2019-07-11 08:31] LABS: HEMATOCRIT 21.3 % (36-52); MEAN CORPUSCULAR HEMOGLOBIN 33 pg (27-31); MEAN CORPUSCULAR HGB CONC 33 g/dL (33-37); PLATELET COUNT (AUTO) 23 K/uL (140-450); RED BLOOD CELL COUNT(AUTO) 2.13 MIL/uL (4.20-6.10); RED CELL DISTRIBUTION WIDTH 22.9 % (11.6-13.7); WHITE BLOOD COUNT (AUTO) 13.4 K/uL (4.8-10.8)
[2019-07-11] MEDS: OCTREOTIDE ACETATE 100 MCG/ML VIAL SUBQ SCH ×3 (08:59→17:45)
[2019-07-11] MEDS: SUCRALFATE 1 GM TAB PO SCH ×4 (08:59→20:40)
[2019-07-11] MEDS: LEVOFLOXACIN 250 MG/D5 PREMIX 50 ML IV SCH (08:59)
[2019-07-11] MEDS: LACTULOSE 20 GM/30 ML UDC PO SCH ×3 (08:59→17:00)
[2019-07-11] MEDS: DOCUSATE SODIUM 100 MG GELCAP PO SCH ×2 (09:00→20:40)
[2019-07-11] MEDS: SODIUM BICARBONATE 8.4% 150 MEQ in DEXTROSE 5% 1,000 ML IV SCH (09:03)
--- NOTE | 2019-07-11 09:21 | NUR ---
PATIENT'S AND DAUGHTER COMPLAINING ABOUT PATIENT'S NEW ROOM. NURSING WHOLESALE BUYER MOHAMED IN TO SPEAK TO THE PATIENT'S FAMILY.
[2019-07-11 09:49] LABS: EOSINOPHILS % (MANUAL) 2 % (0-4); LYMPHOCYTES % (MANUAL) 6 % (20-46); MONOCYTES % (MANUAL) 5 % (5-12)
[2019-07-11] MEDS: Z-GUARD PASTE TP SCH ×2 (10:21→20:45)
--- NOTE | 2019-07-11 10:25 | NUR ---
PATIENT'S ASKED ABOUT POSSIBLE TRANSFER TO [facility]. INFORM THEM INFORMATION PER SOA ARCHITECT'S NOTE AND ENCOURAGED THEM TO FOLLOW UP ON FRIDAY WITH SOA ARCHITECT. PATIENT HAS NO COMPLAINTS AT THIS TIME. SAFETY PRECAUTIONS IN PLACE, CALL LIGHT WITHIN REACH, WILL CONTINUE TO MONITOR PATIENT.
--- NOTE | 2019-07-11 10:53 | NUR ---
DR TAFOYA IN TO SEE THE PATIENT. NEW ORDERS IN. WILL NOTE AND FOLLOW ORDERED. PATIENT RESTING COMFORTABLY IN BED. WILL CONTINUE TO MONITOR PATIENT.
[2019-07-11 11:21] LABS: ANION GAP 20.1 (8-16); CARBON DIOXIDE 15.6 mmol/L (21-32); CREATININE 3.6 mg/dL (0.7-1.3); POTASSIUM 3.7 mmol/L (3.5-5.1)
--- NOTE | 2019-07-11 11:57 | NUR ---
07/11/19 RD FOLLOW UP COMPLETED PLEASE REFER TO NUTRITION PROGRESS NOTE UNDER CARE ACTIVITY FOR ESTIMATED NUTRITION NEEDS. RD RECOMMENDATIONS: 1. CONTINUE CLEAR LIQUIDS TOLERATED. 2. ADVANCE DIET TO FULL LIQUIDS AND THEN TO CARDIAC TOLERATED. 3. RD TO FOLLOW-UP 3-5 DAYS, MODERATE RISK AIME GAN MS, RDN
[2019-07-11 12:00] VITALS: BP 94/52
--- NOTE | 2019-07-11 12:56 | NUR ---
ORDERED MEDICATIONS GIVEN. PATIENT TOLERATED THEM WELL. PATIENT REFUSED LACTULOSE, INFORMED HIM OF INDICATION, HE STILL REFUSED. NO COMPLAINTS AT THIS TIME. DAUGHTER AND AT BEDSIDE. SAFETY PRECAUTIONS IN PLACE, CALL LIGHT WITHIN REACH, WILL CONTINUE TO MONITOR PATIENT.
--- NOTE | 2019-07-11 13:45 | NUR ---
PATIENT HAD BM, PATIENT CLEANED AND CHANGED. PATIENT REPOSITIONED TO OFFLOAD PRESSURE AREAS. NO COMPLAINTS AT THIS TIME. SAFETY PRECAUTIONS IN PLACE, CALL LIGHT WITHIN REACH, WILL CONTINUE TO MONITOR PATIENT.
--- NOTE | 2019-07-11 15:48 | NUR ---
PATIENT RESTING COMFORTABLY IN BED WITH EYES CLOSED. NO COMPLAINTS AT THIS TIME. SAFETY PRECAUTIONS IN PLACE, CALL LIGHT WITHIN REACH, WILL CONTINUE TO MONITOR PATIENT.
[2019-07-11 16:00] VITALS: BP 93/49
--- NOTE | 2019-07-11 17:45 | NUR ---
ORDERED MEDICATIONS GIVEN. PATIENT TOLERATED THEM WELL. PATIENT REFUSED LACTULOSE BECAUSE "I DON'T WANT MORE DIARRHEA". NO COMPLAINTS AT THIS TIME. SAFETY PRECAUTIONS IN PLACE, CALL LIGHT WITHIN REACH, WILL CONTINUE TO MONITOR PATIENT.
--- NOTE | 2019-07-11 19:17 | NUR ---
REPORT GIVEN TO EXTRUSION MACHINE OPERATOR RN AT BEDSIDE FOR CONTINUITY OF CARE. PATIENT IN STABLE CONDITION. DAUGHTER AND AT BEDSIDE.
--- NOTE | 2019-07-11 19:18 | NUR ---
RECEIVED BEDSIDE REPORT FROM DAY SHIFT NURSE SCARLETT RN, PT STABLE, NO DISTRESS NOTED, IV TO R WRIST 22G, PATENT, INTACT, INFUSING WELL, PT ON ROOM AIR, NO SOB NOTED, DRESSINGS INTACT, INITIAL ASSESSMENT DONE, ALL SAFETY PRECAUTION MET, CALL LIGHT WITHIN REACH, WILL CONTINUE TO MONITOR.
[2019-07-11 20:00] VITALS: BP 106/56
--- NOTE | 2019-07-11 20:15 | NUR ---
PT REFUSED TO USE BIPAP, HE SAID THAT WILL CALL ME, IF HE NEEDED.PT IS NOT SOB OR ANI DISTRESS
[2019-07-11] MEDS: PANTOPRAZOLE 40 MG INJ VIAL IVP SCH (20:40)
--- NOTE | 2019-07-11 20:40 | NUR ---
DUE MEDICATION ADMINISTERED, PT TOLERATED WELL, NO DISTRESS NOTED, CALL LIGHT WITHIN REACH, FAMILY AT BEDSIDE WILL CONTINUE TO MONITOR.
--- NOTE | 2019-07-11 22:01 | NUR ---
BLOOD TRANSFUSION STARTED, PT TOLERATING WELL, NO DISTRESS NOTED, CALL LIGHT WITHIN REACH, WILL CONTINUE TO MONITOR.
[2019-07-11] MEDS ORDERED: FUROSEMIDE 40 MG/4 ML VIAL IVP SCH (23:15)
[2019-07-12] VITALS (7 sets, daily range): BP systolic 95–123; BP diastolic 45–72
--- NOTE | 2019-07-12 01:20 | NUR ---
BLOOD TRANSFUSION COMPLETED, PT TOLERATED WELL, NO DISTRESS NOTED, WILL RESUME MEDICATION ORDERED BY MD. PT RESTING, CALL LIGHT WITHIN REACH, WILL CONTINUE TO MONITOR.
[2019-07-12] MEDS: ALBUMIN HUMAN 25% 100 ML IV SCH ×4 (01:33→17:27)
--- NOTE | 2019-07-12 03:54 | NUR ---
PT SLEEPING, NO DISTRESS NOTED, V/S TAKEN, WITHIN PT BASELINE, CALL LIGHT WITHIN REACH, WILL CONTINUE TO MONITOR.
[2019-07-12] MEDS: MIDODRINE 5 MG TAB PO SCH ×3 (06:37→18:53)
[2019-07-12] MEDS ORDERED: ALBUMIN HUMAN 25% 100 ML IV ONE (06:58)
--- NOTE | 2019-07-12 07:10 | NUR ---
RECEIVED REPORT FROM SERVER DEVELOPER NURSE. PT IS AAOX4, NEEDS REMINDERS AND REORIENTATION TO ROOM AND EQUIPMENT. RESPIRATIONS EVEN AND UNLABORED ON RA. LBM 07/12, ACTIVE BS. NOTED SKIN TEARS TO UPPER ARMS AND RT LEG, WILL CHANGE DRESSINGS LATER. IV ON RT WRIST 22 GA RUNNING IVF PER ORDER. F/C IN PLACE, 275 OF MYLES URINE NOTED IN COLLECTION BAG. PT ON FALL RISK PRECAUTIONS, SAFETY MEASURES IN PLACE, BED ON LOW POSITION. REVIEWED POC WITH PT, PT VERBALIZED UNDERSTANDING.
[2019-07-12 07:14] LABS: HEMOGLOBIN 7.7 g/dL (12.0-18.0); MEAN CORPUSCULAR HEMOGLOBIN 35 pg (27-31); MEAN CORPUSCULAR HGB CONC 35 g/dL (33-37); MEAN CORPUSCULAR VOLUME 98.8 fL (80-94); PLATELET COUNT (AUTO) 24 K/uL (140-450); RED BLOOD CELL COUNT(AUTO) 2.23 MIL/uL (4.20-6.10); RED CELL DISTRIBUTION WIDTH 20.1 % (11.6-13.7); WHITE BLOOD COUNT (AUTO) 8.8 K/uL (4.8-10.8)
--- NOTE | 2019-07-12 07:30 | NUR ---
ENDORSED PT TO DAY SHIFT, PT RESTING, NO DISTRESS NOTED, CALL LIGHT WITHIN REACH
[2019-07-12 07:32] LABS: ANION GAP 22.5 (8-16); CARBON DIOXIDE 15.5 mmol/L (21-32); CREATININE 3.6 mg/dL (0.7-1.3)
--- NOTE | 2019-07-12 07:50 | NUR ---
LEFT MESSAGE FOR DR. EPPERSON. AWAITING CALL BACK TO REPORT BUN AND CREAT LEVELS.
[2019-07-12 08:04] LABS: EOSINOPHILS % (MANUAL) 3 % (0-4); LYMPHOCYTES % (MANUAL) 4 % (20-46); MONOCYTES % (MANUAL) 2 % (5-12)
[2019-07-12] MEDS: SUCRALFATE 1 GM TAB PO SCH ×4 (09:05→21:13)
[2019-07-12] MEDS: DOCUSATE SODIUM 100 MG GELCAP PO SCH ×2 (09:05→21:00)
[2019-07-12] MEDS: PANTOPRAZOLE 40 MG INJ VIAL IVP SCH ×2 (09:06→21:12)
[2019-07-12] MEDS: Z-GUARD PASTE TP SCH ×2 (09:06→21:05)
[2019-07-12] MEDS: OCTREOTIDE ACETATE 100 MCG/ML VIAL SUBQ SCH ×3 (09:06→17:26)
[2019-07-12] MEDS: LACTULOSE 20 GM/30 ML UDC PO SCH ×4 (09:06→17:26)
[2019-07-12] MEDS: LEVOFLOXACIN 250 MG/D5 PREMIX 50 ML IV SCH (09:07)
--- NOTE | 2019-07-12 10:00 | NUR ---
SCREEN FOR LOW RILEY SCALE AT RISK, PRESSURE INJURY PREVENTION INTERVENTIONS IN PLACE. MULTIPLE SKIN TEARS TO UPPER AND LOWER EXTREMITIES VERSATEL DRESSING IN PLACE, LOWER ABDOMINAL FOLDS SKIN MOIST AND INTACT, LEFT BUTTOCK WITH INCONTINENT ASSOCIATED DERMATITIS, WOUND BED 100% GRANULATING TISSUE. MOIST AND CLEAN, OPTI FOAM IN PLACE. WILL CONTINUE ON CURRENT TREATMENT AND -TURN AND REPOSITION PATIENT Q 2H -ASSESS AND MONITOR SKIN CONDITION DURING POSITION CHANGE -OFFLOAD BILATERAL HEELS BY PLACING PILLOWS UNDER CALVES AT ALL TIMES, UNLESS OTHERWISE CONTRAINDICATED -PRESSURE REDISTRIBUTION BY PLACING PILLOWS AND OFFLOADING SACRALCOCCYX -KEEP SKIN CLEAN AND DRY AT ALL TIMES. -APPLY INTER DRY CLOTH TO ABDOMINAL FOLD Q7 DAYS AND PRN IF SOILING
--- NOTE | 2019-07-12 11:20 | NUR ---
[employer] Note: Per Rell at [facility] , patient has been accepted at [facility], he stated he needs [facility] authorization, Doctor Podiatric Medicine [place] will follow up with [facility] Doctor Podiatric Medicine for authorization. Rell stated he met with patient and patient's and they are both in agreement with [facility].
--- NOTE | 2019-07-12 11:52 | NUR ---
DC PLANNING: PATIENT IS ACCEPTED AT [facility]. JOIE CONTACTED [facility] (JOIE @ [facility]) @ REGARDING [facility] EVAL AND ACCEPTED. PER [facility], HE WILL PRESENT THE CASE TO THEIR FURNACE MECHANIC HELPER FOR APPROVAL. WILL CONTACT FOR ANY UPDATE. CM TO FOLLOW THIS AFTERNOON NEEDED. Addendum: 07/12/19 at 1525 by [place] Quinones CM RECEIVED A CALL FROM [facility] @ [facility] STATING THAT HE HAD THEIR FURNACE MECHANIC HELPER REVIEW THE CASE FOR [facility] AND IT IS CURRENTLY IN PROGRESS. Addendum: 07/12/19 at 1706 by Naye Fierro CM [facility] has approved [facility], Auth #[id number]. Jerry contacted Rell with [facility] to provide a bed for this patient. Authorization for ambulance transport #[id number]. Please call [facility] if patient needs ambulance level of transfer or [facility] at if pt only needs transportation via gurney and has no other needs during the transfer (same auth). Naye Fierro, [facility] Ext [phone] Addendum: 07/12/19 at 1729 by Naye Fierro CM Pt to be transfer to [facility] room [facility], Attending is Dr. Martinez; transportation arranged through [facility] at 11:00pm. Nursing staff informed. Naye Fierro, [facility] Ext [phone]
[2019-07-12] MEDS: SODIUM BICARBONATE 8.4% 150 MEQ in DEXTROSE 5% 1,000 ML IV SCH (12:48)
--- NOTE | 2019-07-12 12:48 | NUR ---
PT ORIENTED X3 TO PERSON, PLACE AND TIME. REMINDED PT THE PURPOSE FOR BEING ADMITTED TO THE HOSPITAL. WILL REQUIRE FREQUENT REMINDERS.
--- NOTE | 2019-07-12 13:00 | NUR ---
PAGED DR. SANTACRUZ REGARDING MIDODRINE PARAMETERS, AWAITING CALL BACK.
--- NOTE | 2019-07-12 13:50 | NUR ---
PER PHARMACY, OK TO GIVE MIDODRINE AT THIS TIME. CONTINUE TO REACH DR. SANTACRUZ REGARDING MIDODRINE PARAMETERS.
--- NOTE | 2019-07-12 13:56 | NUR ---
PAGED DR. SANTACRUZ A SECOND TIME, AWAITING CALL BACK.
[2019-07-12] MEDS ORDERED: INTERDRY CLOTH TP PRN (14:50)
[2019-07-12] MEDS ORDERED: INTERDRY CLOTH TP SCH (14:50)
--- NOTE | 2019-07-12 17:00 | NUR ---
VICKY DIRECTOR OF CALLED STATED THAT [facility] ACCEPTED PT, GOING TO ROOM 205-A, [facility] ETA WILL BE AT 11:30 PM TONIGHT. JUAN PABLO ASSIGNED MADE AWARE.
--- NOTE | 2019-07-12 17:08 | NUR ---
PT IS REFUSING DRESSING CHANGE, INFORMED PT THAT HE MIGHT BE TRANSFERRED TODAY AND RN NEEDS TO TAKE PICTURES OF WOUNDS. PT STATES "IT HURTS, YOU GUYS KEEP HURTING ME. PLEASE LEAVE IT IT IS."
--- NOTE | 2019-07-12 19:30 | NUR ---
ENDORSED PT TO HOME HOSPICE AIDE NURSE. PT HAS NO SIGNS OF DISTRESS AT THIS TIME.
--- NOTE | 2019-07-12 19:32 | NUR ---
RECEIVED PT FROM DAY SHIFT NURSE PT IS AAOX4 JAUNDICE, ASCITIS, EDEMA ON BLE AND MULTIPLES SKIN TEARS ON BOTH ARMS AND LEGS, ON TELMETRY SR IV ONRT HAND INFUSING WLLL RELATIVES AT BED SIDE PT HAS ORDER TO BE DISCHARGE TO [facility] AND I WILL STARTED TO PREPARE THE DISCHARGE
--- NOTE | 2019-07-12 21:00 | NUR ---
MEDIC GIVEN ORDER ON TELEMETRY SR EWPOSITRIONED NOT DISTRESS NOTED
--- NOTE | 2019-07-12 21:30 | NUR ---
PT REFUSED PICTURES BEFORE DISCHARGE FAMILY AT BED SIDE
--- NOTE | 2019-07-12 23:00 | NUR ---
REPORT GIVEN TO CHEYANNE DAMICO RN [facility] PT IS GOING TO [id number]
--- NOTE | 2019-07-13 01:10 | NUR ---
[facility] IS HERE WRIST BAND REMOVED TELE BOX REMOVED PT NOT DISTRESS NOTED VITAL SIGNS STABLE GOING TO [facility] FAMILY ALREADY AWARE
== END 2019-07-13 01:20 | DRG 264 ==
LOC: MED 09:42 → MTU 12:39 → MIC 07-08 23:50 → MTU 07-09 19:45
PROVIDERS: ADMIT Internal Medicine; ATTEND Internal Medicine
PROC: 30233N1 Transfusion of Nonautologous Red Blood Cells into Peripheral Vein, Percutaneous Approach (ICD-10-PCS; 2019-07-01)
PROC: 0W3P4ZZ Control Bleeding in Gastrointestinal Tract, Percutaneous Endoscopic Approach (ICD-10-PCS; principal; 2019-07-02 07:00)
PROC: 0W3P8ZZ Control Bleeding in Gastrointestinal Tract, Via Natural or Artificial Opening Endoscopic (ICD-10-PCS; 2019-07-09)
PROC: 5A09457 Assistance with Respiratory Ventilation, 24-96 Consecutive Hours, Continuous Positive Airway Pressure (ICD-10-PCS; 2019-07-09)
DX: K70.30 Alcoholic cirrhosis of liver without ascites (principal); J96.00 Acute respiratory failure, unspecified whether with hypoxia or hypercapnia; K76.7 Hepatorenal syndrome; E43 Unspecified severe protein-calorie malnutrition; E72.20 Disorder of urea cycle metabolism, unspecified; I85.11 Secondary esophageal varices with bleeding; J18.9 Pneumonia, unspecified organism; N17.9 Acute kidney failure, unspecified; E87.2 Acidosis; D62 Acute posthemorrhagic anemia; D68.9 Coagulation defect, unspecified; D69.59 Other secondary thrombocytopenia; E87.5 Hyperkalemia; K72.90 Hepatic failure, unspecified without coma; D64.9 Anemia, unspecified; E66.9 Obesity, unspecified; K29.70 Gastritis, unspecified, without bleeding; K76.6 Portal hypertension; Z66 Do not resuscitate; N18.9 Chronic kidney disease, unspecified; I12.9 Hypertensive chronic kidney disease with stage 1 through stage 4 chronic kidney disease, or unspecified chronic kidney disease; D69.6 Thrombocytopenia, unspecified; Z68.34 Body mass index [BMI] 34.0-34.9, adult
CPT/HCPCS: 36415; 36600; 71045; 76705; 76770; 80048; 80053; 81003; 82140; 82803; 82948; 83605; 83735; 83880; 84100; 84484; 85025; 85610; 85730; 86870; 86880; 86886; 86900; 86901; 86902; 86920; 87040; 87081; 87086; 93005; 94660; 96361; 96374; 99285; C9113; J0696; J1200; J1885; J1940; J1956; J2250; J2270; J2354; J3010; J3490; J7030; J7060; P9016; P9046; Q0092